=== PATIENT | male | born 1955 | race Caucasian/White ===

== ENCOUNTER → 2018-09-20 09:19 | Outpatient (CLI) | payer OTHER, SELFPAY ==
[2018-09-20 09:41] LABS: Hematocrit 46.7 % (41-53); Hemoglobin 15.8 g/dL (13.5-17.5); Mean Corpuscular HGB Conc 33.8 % (30-36); Mean Corpuscular Hemoglobin 30.7 PG (26-34); Mean Corpuscular Volume 90.9 fL (80-100); Platelet Count 201 X10^3/uL (150-400); Red Blood Cell Count 5.13 X10^6/uL (4.5-5.9); Red Cell Distribution Width 13.4 % (11.6-14.8); White Blood Cell Count 6.3 X10^3/uL (4.5-11.0)
[2018-09-20 09:52] LABS: Blood Urea Nitrogen 18 mg/dL (9-20); Carbon Dioxide 28 mmol/L (22-32); Chloride 104 mmol/L (98-107); Estimated Glomerular Filt Rate > 60.0 mL/min (>60); Glucose 224 mg/dL (80-110); HEMOLYSIS < 15 (0-50); Potassium 5.3 mmol/L (3.4-5.1); Sodium 145 mmol/L (137-145)
[2018-09-20 09:53] LABS: Hemoglobin A1C% w Est Avg Glu 7.2 % (4.0-6.0)
== END ==
PROVIDERS: PCP Family Medicine; Visit Provider Orthopaedic Surgery Orthopaedic Surgery of the Spine
DX: R73.9 Hyperglycemia, unspecified (principal); Z01.818 Encounter for other preprocedural examination
CPT/HCPCS: 36415; 80048; 83036; 85027

== ENCOUNTER 2018-09-27 06:09 | Inpatient (IN) | payer OTHER, SELFPAY ==
[2018-09-21 14:31] VITALS: BMI 36.9
[2018-09-27] VITALS (23 sets, daily range): BP systolic 101–141; BP diastolic 63–86; PULSE 68–112; RESP 11–19; TEMP 35.7–37; O2SAT 93–99; BMI 36.9
--- NOTE | 2018-09-27 | DI.RAD.S_ITS ---
PROCEDURE: XR LUMBAR SPINE 2-3V INDICATIONS: L3-4, L4-5 TLIF TECHNIQUE: 2 views of the lumbar spine were acquired. COMPARISON: None. FINDINGS: Spot fluoroscopic images demonstrating posterior spinal fixation from L3-L4 and L4-L5 with paraspinal alex and pedicle screws, and interbody cage grafts. There is expected intraoperative alignment Dictated by: Harley Phillips M.D. on 09/27/2018 at 13:28 Approved by: Harley Phillips M.D. on 09/27/2018 at 13:29
[2018-09-27] MEDS: LACTATED RINGERS 1,000 ML 42 ML IV ×3 (07:25→11:48)
--- NOTE | 2018-09-27 07:48 | PM.PREOP ---
Pre-operative Note Interval Note Pre-op Check: Yes History & Physical Reviewed by Physician, Yes Exam Performed and Yes History & Physical exam performed today by Physician Changes: No
[2018-09-27] MEDS: CEFAZOLIN 2 GM/100 ML FROZ.PIGGY IV ×3 (07:57→23:32)
[2018-09-27] MEDS: BUPIVACAINE LIPOSOME 266 MG/20 ML VIAL INJ (08:45)
[2018-09-27] MEDS: BUPIVACAINE 0.25% W/ EPI VIAL 50 ML INJ (08:46)
--- NOTE | 2018-09-27 08:55 | SUR.OPER ---
Prone on spine table, head in foam head support, padded chest and pelvic supports, gel pad at knees, lower legs supported by pillows; nipples, genitalia and toes free of pressure, arms secured on foam padded arm boards at <90 degrees abduction. Tape over blanket at thigh secured to table.
--- NOTE | 2018-09-27 11:00 | PC.NURSE ---
Day shift: Not on AC unit at this time.
[2018-09-27] MEDS: ACETAMINOPHEN 1,000 MG/100 ML VIAL IV (11:25)
--- NOTE | 2018-09-27 12:31 | P.OP_ITS ---
Operative Date/Time/Diagnoses Date of procedure: 09/27/18 Time of procedure: 08:24 Pre-op diagnosis: 1. Left drop foot due to lumbar radiculopathy 2. Lumbar spinal stenosis L3-4, L4-5 3. Lumbar spondylosis with radiculopathy Post-op diagnosis: same Procedure & Clinicians Procedure: 1. L3-4, L4-5 Postero-lateral and posterior interbody fusion 2. L3-4, L4-5 interbody cage placement. 3. L3-4, L4-5 decompressive laminectomy with bilateral facetecomies 4. L3-4, L4-5 Posterior segmental instrumentation 5. Hennessey of bone marrow from iliac crest 6. Utilization of microsurgical technique and operating microscope Same procedure as scheduled: Yes Indications: Patient has been having chronic back pain and worsening lumbar radiculopathy. Patient had a progressively worsening left-sided drop foot due to the severe stenosis and spondylosis. Patient failed multiple conservative management with worsening pain weakness and numbness in her lower extremity. Patient has been having difficulty performing activity of daily living. After discussing risks benefits of treatment options, patient elected proceed with surgery. Surgeon: Steve Ocampo [employer] [facility] Consultant: Demetria Diaz Click Yes if Unassisted: No Anesthesia Type: General Operative Notes Closure Type: primary Specimen(s): none sent Implants & Drains: Globus revolve screws, Rise cages Applied: catheter Estimated Blood Loss (mL): 100 Blood products transfused: none Procedure in detail: Patient was seen in the preoperative area. Risks and benefits of the surgery was discussed with the patient. Informed consent was obtained from the patient and placed in the chart. Surgical site was marked. Patient was taken to the operative room. General anesthesia was administered. Prophylactic antibiotic was given to the patient less than 30 min before the incision was made. Patient was placed into a prone position on the Kaz table. Patient's back was then prepped and draped in the sterile fashion. Time- out was performed at this time. Using AP and lateral C-arm imaging the interval between L3-4, L4-5 was identified and marked on patient's back. A 2 inch incision 2 in from midline was made on the left side first. The fascia was incised in line with skin incision. Globus MARS retractors was placed inside the incision and docked onto the L4 and L5 lamina. Using microsurgical technique and operating microscope, a L3 and L4 laminectomy and L3-4, L4-5 facetectomy was performed using a Kerrison rongeur. The exiting L3 and L4 nerve roots on the left were under significant pressure from the enlarged facets. After the decompression, the nerve roots were fully decompressed. The disc space at L3-4, L4-5 was identified. And a total diskectomy was performed at L3-4, L4-5 level. The endplates were decorticated using a rasp and shaver. The total diskectomy and decortication was performed at L3-4, L4-5 level in order to to accomplish a L3-4 , L4-5 fusion. The local bone from the laminectomy and facetectomy was saved for local bone grafting. After the total diskectomy and decortication was completed, demineralized bone matrix bone graft material was combined with local bone that was harvested earlier. At this time, a separate skin is incision was made over the iliac crest. A Jamshidi needle was inserted into the iliac crest through a separate skin incision. 5 cc of bone marrow aspiration was obtained through the separate skin incision using a Jamshidi needle from the iliac crest. The bone marrow aspiration was combined with local bone and the via cell bone grafting material. The bone grafting material was placed into the L3-4, L4-5 interbody space along with two cages, one expandable cage at each level. The cages were expanded to their maximum height using the torque limiting screwdriver. At this time a mirror image incision was made on the right side. The fascia was incised in line with the skin incision. Globus MARS retractor was inserted and docked onto the L3-4, L4-5 posterolateral gutter. Using the power drill, posterior-lateral decortication was performed at L3-4, L4-5 level until bleeding cortical bone was identified. The remaining bone grafting material was placed into the L3-4, L4-5 posterior lateral gutter he order to accomplish posterolateral fusion at the L3-4, L4-5 levels. Using the double C-arm technique, pedicle screws were placed into the L3, L4, and L5 pedicles bilaterally. This was done by placing the Jamshidi needle into the pedicles, then placing the guidewires over the Jamshidi needle, and finally placing the cannulated screws over the guidewires bilaterally. After the pedicle screws were placed, 2 titanium rods was locked into the heads of the pedicle screws using locking caps and torque limiting screwdriver. Total 6 pedicles screws were placed. After all the hardware was placed, and confirmed with AP and lateral C-arm imaging, the wound was then irrigated with sterile normal saline and packed with Ray-Bere gauze for 3 min to accomplish hemostasis. After the gauze was removed the deep fascia was closed with #1 Vicryl suture. The subcutaneous layer was closed with 2-0 Vicryl. The skin was closed with skin laura. Patient tolerated the procedure well. There were no complications. Complications: none Condition: stable Disposition: PACU Plan for aftercare: Admit to inpatient hospital
[2018-09-27] MEDS: hydrOXYzine 50 MG/ML INJ IM (12:45)
[2018-09-27] MEDS: LORazepam 2 MG/ML SYRINGE 0.25 MG IV (12:54)
[2018-09-27] MEDS: fentaNYL 100 MCG/2 ML INJ 50 MCG IV ×2 (13:26→13:35)
--- NOTE | 2018-09-27 14:08 | PC.NURSE ---
Day shift: Arrived on unit at approx 1400 from PACU. Dressing is CDI. Spouse in room and very involved with his care. Olivares in place. 2L NC 95%. RT is going to set up CPAP. Will continue to monitor.+
--- NOTE | 2018-09-27 14:21 | SUR.OPER ---
when removing tape during extubation a small skin tear occurred on the patients right cheekbone
[2018-09-27] MEDS: OXYCODONE IR 5 MG TABLET 10 MG PO ×3 (15:52→23:32)
[2018-09-27] MEDS: SODIUM CHLORIDE 0.9% 1,000 ML 100 ML IV (15:56)
--- NOTE | 2018-09-27 16:20 | PT.IIE ---
Current Diagnoses Foot drop, left foot (09/27/18) Other spondylosis with radiculopathy, lumbar region (09/27/18) Spinal stenosis, lumbar region without neurogenic claudication (09/27/18) Surgery Performed Operation Date: 09/27/18 07:45 Actual Procedures p L3-4, L4-5 TLIF w/Posterior Instru. - Steve Ocampo MD Surgical History (Last Updated 09/21/18 @ 14:57 by Kim Colón, RN) Hx of heart artery stent (Acute ~2004) Hx of laminectomy (Acute) Hx of tonsillectomy (Acute) Medical History (Last Updated 09/21/18 @ 15:10 by Kim Colón RN) Anxiety (Acute) Bronchitis (Acute) CAD (coronary artery disease) (Acute) Coccyx disorder (Acute) Diabetes (Acute) Eczema (Acute) HTN (hypertension) (Acute) Hyperlipidemia (Acute) Melanoma (Acute) Muscle weakness (Acute) Numbness and tingling (Acute) GEOVANNY on CPAP (Acute) Panic attacks (Acute) Physical Therapy Inpatient Evaluation/Re-Eval M1 PT/OT-IP Prior Functional Status Start: 09/27/18 16:47 Freq: NEEDED Status: Active Protocol: Document 09/27/18 16:20 AB (Rec: 09/27/18 17:11 AB [id number]) Medical Review Prior Functional Status Medical History Reviewed Yes Communication able to make needs known Mobility and Gait stated that he is independent with all mobilities and ambulation without AD but has gotten weakness on BLE passed few months and unable to ambulate much Social History Household Members spouse Living Arrangements House Number of Floors (Floors) 3 or More Floors Number of Stairs To Enter/Railing? no steps to enter and has an elevator to get to other floor Home Environment Standard Height Toilet Walk in Shower Tub/Shower Home Equipment Front Wheel Walker Raised Toilet Seat w/Armrests Hand Held Shower Grab Bars In Shower Employment Status Retired Additional Social History Comment pt has a walk in shower but is broken; has a tub shower without grab bars/chair M2 PT-IP Current Condition Start: 09/27/18 16:47 Freq: NEEDED Status: Active Protocol: Document 09/27/18 16:20 AB (Rec: 09/27/18 17:11 AB [id number]) Physical Therapy Current Condition Current Condition Evaluation Date 09/27/18 Treatment Diagnosis L3-4, L4-5 posterior fusion and lami; difficulty in walking Onset Date 09/27/18 Precautions Lumbar Precautions Log Roll No Twisting Limit Bending Lifting Restriction of 10 lbs Gait Belt above Incisional Area M3 PT-IP Subjective Start: 09/27/18 16:47 Freq: NEEDED Status: Active Protocol: Document 09/27/18 16:20 AB (Rec: 09/27/18 17:11 AB [id number]) Subjective Physical Therapy Visit Type Type Initial Evaluation Visit Start Time 16:20 Visit Stop Time 16:47 Total Visit Minutes 27 Number of SPREAD CUTTER Visits 0 Physical Therapy Visit Comments Patient Comments I have a lot of pain; pt getting agitated/irritated when asked to do log roll, stated Why can't you just pull me and get me up. Patient Goals to go home Therapy Pain Assessment Pain When Pain Assessed At Rest Pain Present Pain Present Pain Reported Location Back Intensity 9 Scale Used Numeric (1 - 10) Pain Management Techniques Re-positioning Timing of Activity with Medications M4 PT-IP Mobility and Gait Start: 09/27/18 16:47 Freq: NEEDED Status: Active Protocol: Document 09/27/18 16:20 AB (Rec: 09/27/18 17:11 AB [id number]) PT-Bed Mobility Assessment Rolling Type of Rolling Log Rolling Level of Assist Maximal Assistance 1 Person Assistance Supine to Sit Supine to Sit Maximum Assistance 1 Person Assistance 2 Person Assistance Scooting Scooting to Edge of Bed Maximum Assistance PT-Transfer Assessment Sit to and From Stand Sit to and from Stand Maximum Assistance 1 Person Assistance Use of Upper Extremities Equipment Transfer Assistive Device Gait Belt Front Wheeled Walker Orthotic/Prosthetic Devices or Brace: No Transfers Transfer Destination Chair Transfer Technique Stand Step Pivot Transfer Ability Level of Assist Minimal Assistance 1 Person Assistance Use of Upper Extremities Comments Mobility Comments pt required max A for sit to stand but able to take side steps to transfer to chair using FWW min A. pt refused to ambulate and just want to sit on the chair. informed nurse regarding pt's c/o pain. Gait Assessment Comments Gait Comments refused to do ambulation but able to take steps during transfers using FWW min A and cues. PT-Balance Assessment Sitting Balance and Reactions Static Sitting Balance Ability Good Dynamic Sitting Balance Ability Good Standing Balance and Reactions Static Standing Balance Ability Fair Dynamic Standing Balance Ability Fair Device Used FWW M5 PT-IP Objective Assessments Start: 09/27/18 16:47 Freq: NEEDED Status: Active Protocol: Document 09/27/18 16:20 AB (Rec: 09/27/18 17:11 AB [id number]) Orientation Orientation/Cognition Level of Alertness Alert Orientation Name Age Birthday Month Date Year Day of Week Place Situation Safety Awareness Decreased Safety Awareness Memory Description Short Term Impaired Gross Range of Motion Lower Extremity ROM Assessment Within Functional Limits Strength Lower Extremity Strength Assessment Bilaterally Impaired Hip 4-/5 Knee 4-/5 Sensation Assessment Sensation Gross Sensation WNL Muscle Tone Muscle Tone WNL Yes M6 PT-IP Treatment Start: 09/27/18 16:47 Freq: NEEDED Status: Active Protocol: Document 09/27/18 16:20 AB (Rec: 09/27/18 17:11 AB [id number]) Physical Therapy Treatment Education Education Provided Precautions Weight Bearing Status Post-Op Packet Safety M7 PT-IP Assessment and Plan Start: 09/27/18 16:47 Freq: NEEDED Status: Active Protocol: Document 09/27/18 16:20 AB (Rec: 09/27/18 17:11 AB [id number]) PT Summary Assessment and Plan Potential Rehabilitation Potential Fair Status of Condition at Evaluation Evolving Summary Impairments Pain ROM Strength Balance Coordination Sensation Tone Cognition Bed Mobility Transfers Gait Activity Tolerance Assessment Summary pt requiring max A x 1-2 for bed mobility and max A for sit to stand. c/o increase pain affecting mobility. d/c plan depending on progress and needs further assessment. spouse will assist pt at home and caregiver training will be conducted when appropriate. Goals Bed Mobility Goal Standby Assistance Transfer Goal Standby Assistance Front Wheeled Walker Gait Goal Standby Assistance Front Wheel Walker Gait Distance 150 Days to Meet Goals 3 Frequency of Treatment Frequency Of Treatment Twice a Day Treatment Plan Physical Therapy Treatment Plan Bed Mobility Training Transfer Training Gait Training Therapeutic Exercise Balance Retraining Post Op Education Discharge Planning Hot or Cold Pack Neuromuscular Re-ed Coordination Retraining Manual Therapy Other Recommendations and Next Treatment ambulation Focus Recommendations To Nursing Amount of Assist Needed 1 Person Assist Discharge Recommendations PT Discharge Recommendations Home with 24/7 Assist Home Health SNF Rehab Other Discharge Recommendations SNF vs home with 24/7 and homehealth PT
[2018-09-27] MEDS: HYDROMORPHONE 1 MG INJ 0.5 MG IV ×2 (18:22→20:47)
[2018-09-27] MEDS: COLESEVELAM 625 MG TABLET 1875 MG PO (20:40)
[2018-09-27] MEDS: ASPIRIN EC 81 MG TABLET PO (20:40)
[2018-09-27] MEDS: ATORVASTATIN 20 MG TABLET 40 MG PO (20:40)
[2018-09-27] MEDS: DOCUSATE 100 MG CAPSULE PO (20:41)
[2018-09-27] MEDS: INSULIN GLARGINE 100 UNIT/ML 3ML PEN 70 UNIT SUBCUT (20:51)
[2018-09-27] MEDS: INSULIN ASPART 100 UNIT/ML INSULN PEN SUBCUT (20:51)
[2018-09-27] MEDS: RAMIPRIL 5 MG CAPSULE PO (21:06)
--- NOTE | 2018-09-27 23:46 | PC.NURSE ---
Addendum entered by Alise Fernández R.N. 09/28/18 05:44: Up to chair with 2 assist and walker; slightly unsteady upon first standing up. Reminded of log rolling and restrictions on bending, twisting and lifting; verbalizes understanding. Ice applied to back. States pain is 7/10 so medicated with Oxycodone + Vistaril and discussed intervals on both pain medications. States his back and transfer ability seems much improved from yesterday. Original Note: Addendum entered by Alise Fernández R.N. 09/28/18 02:41: States pain is still 8/10 with movement and 5/10 at rest; medicated with Oxycodone IR. Original Note: Addendum entered by Alise Fernández R.N. 09/28/18 01:14: Patient medicated with Vistaril for continued pain and instructed to call if medication insufficient to control pain. Original Note: Addendum entered by Alise Fernández R.N. 09/28/18 00:51: Able to turn himself back onto back. States pain is better but still at 8/10. Requests SCD's be removed as they're keeping me awake; reminded to ankle wave when awake and patient verbalizes understanding. Original Note: Patient is alert and oriented. Breath sounds CTA with RA sat of 94%; using CPAP for night and is on continuous pulse oximeter. HRR. Denies nausea. BT present and is passing flatus. Dressing to back is CDI. Complains of 9/10 back pain so medicated with Oxycodone IR, ice applied and repositioned onto right side via log roll method. Foot SCD's applied during bedside shift report. Denies any tingling/numbness and CMS is intact. Indwelling catheter is patent with pale yellow urine in bag. Taking in good po fluids. Fall risk score is high (reports 1 fall in past 3 months) so bed alarm activated.
[2018-09-28] VITALS (7 sets, daily range): BP systolic 116–160; BP diastolic 60–90; PULSE 101–115; RESP 16–20; TEMP 36.6–37.3; O2SAT 90–98
[2018-09-28] MEDS: hydrOXYzine pamoate 25 MG CAPSULE PO ×6 (01:07→22:38)
[2018-09-28] MEDS: OXYCODONE IR 5 MG TABLET 10 MG PO ×7 (02:39→20:18)
[2018-09-28 05:24] LABS: Hematocrit 39.9 % (41-53); Hemoglobin 13.2 g/dL (13.5-17.5)
[2018-09-28] MEDS: ISOSORBIDE MONONITRATE ER 30 MG TABLET PO (05:35)
--- NOTE | 2018-09-28 07:41 | PM.PNPO.1 ---
Subjective Date Patient Seen: 09/28/18 Interval history: Patient seen s/p L3-4, L4-[address] Ocampo on 09/27/18. Patient is POD #1. Patient's pain is well controlled and he states that he feels like his foot drop on the left side has improved. He has been up some but not worked with PT. Denies CP, SOB, or numbness/tingling. Exam Vital Signs (past 8 hours): - 09/28/18 02:24 09/28/18 03:23 Temperature 97.8 F Pulse Rate 109 H Respiratory Rate 19 Blood Pressure 116/60 Pulse Oximetry 94 98 Fraction of Inspired Oxygen 21 Oxygen Delivery Method Room Air,CPAP Oxygen Flow Rate 0 Narrative Exam Narrative: WDWN NAD A&Ox3. Dressing on lumbar spine CDI. No focal deficits noted, calves are soft and compressible. Objective Labs Result Diagrams: 09/28/18 05:10 Labs: Laboratory Results - last 24 hr 09/28/18 05:10 Hgb 13.2 L Hct 39.9 L Assessment & Plan Post-op Postoperative Procedures Operation Date: 09/27/18 07:45 Actual Procedures Side Surgeon p L3-4, L4-5 TLIF w/Posterior Instru. Steve Ocampo MD 1. POD #1 s/p above procedure--PT, pain control, likely d/c tomorrow. D/c catheter when more mobile.
[2018-09-28] MEDS: ACETAMINOPHEN 325 MG TABLET 650 MG PO ×2 (08:41→14:05)
[2018-09-28] MEDS: DOCUSATE 100 MG CAPSULE PO ×2 (08:42→20:16)
[2018-09-28] MEDS: METFORMIN XR 500 MG TABLET 1000 MG PO ×2 (08:42→17:08)
[2018-09-28] MEDS: METOPROLOL ER 50 MG TABLET PO (08:42)
[2018-09-28] MEDS: COLESEVELAM 625 MG TABLET 1875 MG PO ×2 (08:42→20:16)
[2018-09-28] MEDS: ESCITALOPRAM 10 MG TABLET PO (08:42)
[2018-09-28] MEDS: MULTIVITAMIN 1 TABLET 1 TAB PO (08:43)
[2018-09-28] MEDS: INSULIN ASPART 100 UNIT/ML INSULN PEN SUBCUT ×2 (08:46→12:18)
--- NOTE | 2018-09-28 09:35 | PT.IPTN ---
Current Diagnoses Foot drop, left foot (09/27/18) Other spondylosis with radiculopathy, lumbar region (09/27/18) Spinal stenosis, lumbar region without neurogenic claudication (09/27/18) Surgery Performed Operation Date: 09/27/18 07:45 Actual Procedures p L3-4, L4-5 TLIF w/Posterior Instru. - Steve Ocampo MD Physical Therapy Treatment Note M2 PT-IP Current Condition Start: 09/27/18 16:47 Freq: NEEDED Status: Active Protocol: Document 09/27/18 16:20 AB (Rec: 09/27/18 17:11 AB [id number]) Physical Therapy Current Condition Current Condition Evaluation Date 09/27/18 Treatment Diagnosis L3-4, L4-5 posterior fusion and lami; difficulty in walking Onset Date 09/27/18 Precautions Lumbar Precautions Log Roll No Twisting Limit Bending Lifting Restriction of 10 lbs Gait Belt above Incisional Area M3 PT-IP Subjective Start: 09/27/18 16:47 Freq: NEEDED Status: Active Protocol: Document 09/28/18 09:35 GGD (Rec: 09/28/18 12:38 GGD [email or web address]) Subjective Physical Therapy Visit Type Type Treatment Note Visit Start Time 09:10 Visit Stop Time 09:35 Total Visit Minutes 25 Number of FRONT OFFICE AGENT Visits 1 Physical Therapy Visit Comments Patient Comments Pt states he been up to chair today. Therapy Pain Assessment Pain When Pain Assessed At Rest Pain Present Pain Present Pain Reported M4 PT-IP Mobility and Gait Start: 09/27/18 16:47 Freq: NEEDED Status: Active Protocol: Document 09/28/18 09:35 GGD (Rec: 09/28/18 12:38 GGD [email or web address]) PT-Bed Mobility Assessment Rolling Level of Assist Contact Guard Assistance 1 Person Assistance Supine to Sit Supine to Sit Moderate Assistance 1 Person Assistance Sit to Supine Sit to Supine Contact Guard Assistance Scooting Scooting to Edge of Bed Contact Guard Assistance PT-Transfer Assessment Sit to and From Stand Sit to and from Stand Contact Guard Assistance Use of Upper Extremities Equipment Transfer Assistive Device Gait Belt Front Wheeled Walker Orthotic/Prosthetic Devices or Brace: No Transfers Transfer Destination Bed Transfer Ability Level of Assist Contact Guard Assistance Use of Upper Extremities Gait Assessment Gait Gait Assistance Required: Contact Guard Assist Distance (Feet) 150 Able to Maintain Weight Bearing Status Yes During Gait Assistive Devices Assistive Device Gait Belt Front Wheeled Walker Orthotic/Prosthetic Devices or Brace: No Gait Deviations General Gait Pattern Decreased Stride Length Decreased Feet Clearance Flexed Trunk Factors Limiting Gait Function Factors Limiting Gait Function Decreased Activity Tolerance Decreased Strength Pain M5 PT-IP Objective Assessments Start: 09/27/18 16:47 Freq: NEEDED Status: Active Protocol: Document 09/27/18 16:20 AB (Rec: 09/27/18 17:11 AB [id number]) Orientation Orientation/Cognition Level of Alertness Alert Orientation Name Age Birthday Month Date Year Day of Week Place Situation Safety Awareness Decreased Safety Awareness Memory Description Short Term Impaired Gross Range of Motion Lower Extremity ROM Assessment Within Functional Limits Strength Lower Extremity Strength Assessment Bilaterally Impaired Hip 4-/5 Knee 4-/5 Sensation Assessment Sensation Gross Sensation WNL Muscle Tone Muscle Tone WNL Yes M6 PT-IP Treatment Start: 09/27/18 16:47 Freq: NEEDED Status: Active Protocol: Document 09/28/18 09:35 GGD (Rec: 09/28/18 12:38 GGD [email or web address]) Physical Therapy Treatment Education Education Provided Precautions M7 PT-IP Assessment and Plan Start: 09/27/18 16:47 Freq: NEEDED Status: Active Protocol: Document 09/28/18 09:35 GGD (Rec: 09/28/18 12:38 GGD [email or web address]) PT Summary Assessment and Plan Summary Assessment Summary Pt improving with bed mobility and gait tolerance. He did have increase in pain with bed mobility. He need less assist , but did need mod A for supine to sit. He need cues for log roll technique. Pt should D/C home when medically stable. Frequency of Treatment Frequency Of Treatment Twice a Day Treatment Plan Physical Therapy Treatment Plan Bed Mobility Training Transfer Training Gait Training Therapeutic Exercise Balance Retraining Post Op Education Discharge Planning Hot or Cold Pack Neuromuscular Re-ed Coordination Retraining Manual Therapy Other Recommendations and Next Treatment ambulation Focus Recommendations To Nursing Amount of Assist Needed 1 Person Assist Discharge Recommendations PT Discharge Recommendations Home with Assistance
[2018-09-28] MEDS: SODIUM CHLORIDE 0.9% FLUSH 10 ML IV ×2 (10:00→20:15)
--- NOTE | 2018-09-28 13:03 | OT.IP.TRT ---
Current Diagnoses Foot drop, left foot (09/27/18) Other spondylosis with radiculopathy, lumbar region (09/27/18) Spinal stenosis, lumbar region without neurogenic claudication (09/27/18) Surgery Performed Operation Date: 09/27/18 07:45 Actual Procedures p L3-4, L4-5 TLIF w/Posterior Instru. - Steve Ocampo MD Occupational Therapy Treatment Note M3 OT- IP Subjective and Pain Start: 09/28/18 13:01 Freq: Status: Active Protocol: Document 09/28/18 13:01 [facility] (Rec: 09/28/18 13:03 [facility] [id number]) OT- Subjective Occupational Therapy Visit Type Type Treatment Note Notes Pt not wanting to been see for OT at this time due to just receiving pain medications and prefer to be seen tomorrow for OT needs. Therefore to do OT eval tomorrow.
[2018-09-28] MEDS: HYDROMORPHONE 0.5 MG INJ IV ×2 (15:02→18:46)
--- NOTE | 2018-09-28 16:00 | PT.IPTN ---
Current Diagnoses Foot drop, left foot (09/27/18) Other spondylosis with radiculopathy, lumbar region (09/27/18) Spinal stenosis, lumbar region without neurogenic claudication (09/27/18) Surgery Performed Operation Date: 09/27/18 07:45 Actual Procedures p L3-4, L4-5 TLIF w/Posterior Instru. - Steve Ocampo MD Physical Therapy Treatment Note M2 PT-IP Current Condition Start: 09/27/18 16:47 Freq: NEEDED Status: Active Protocol: Document 09/27/18 16:20 AB (Rec: 09/27/18 17:11 AB [id number]) Physical Therapy Current Condition Current Condition Evaluation Date 09/27/18 Treatment Diagnosis L3-4, L4-5 posterior fusion and lami; difficulty in walking Onset Date 09/27/18 Precautions Lumbar Precautions Log Roll No Twisting Limit Bending Lifting Restriction of 10 lbs Gait Belt above Incisional Area M3 PT-IP Subjective Start: 09/27/18 16:47 Freq: NEEDED Status: Active Protocol: Document 09/28/18 14:45 GGD (Rec: 09/28/18 15:59 GGD [id number]) Subjective Physical Therapy Visit Type Type Treatment Note Visit Start Time 14:15 Visit Stop Time 14:45 Total Visit Minutes 30 Number of MEDICAL AUDITOR Visits 2 Physical Therapy Visit Comments Patient Comments Pt states he is in a lot of pain, but want's to try and walk. Therapy Pain Assessment Pain When Pain Assessed At Rest Pain Present Pain Present Pain Reported Location Back Intensity 8 Scale Used Numeric (1 - 10) Pain Management Techniques Re-positioning Timing of Activity with Medications M4 PT-IP Mobility and Gait Start: 09/27/18 16:47 Freq: NEEDED Status: Active Protocol: Document 09/28/18 14:45 GGD (Rec: 09/28/18 15:59 GGD [id number]) PT-Bed Mobility Assessment Rolling Type of Rolling Log Rolling Level of Assist Minimal Assistance 1 Person Assistance Supine to Sit Supine to Sit Maximum Assistance 1 Person Assistance Bedrails Sit to Supine Sit to Supine Minimal Assistance 1 Person Assistance Bedrails Scooting Scooting to Edge of Bed Contact Guard Assistance PT-Transfer Assessment Sit to and From Stand Sit to and from Stand Contact Guard Assistance Use of Upper Extremities Equipment Transfer Assistive Device Gait Belt Front Wheeled Walker Orthotic/Prosthetic Devices or Brace: No Transfers Transfer Destination Bed Transfer Ability Level of Assist Contact Guard Assistance Use of Upper Extremities Gait Assessment Gait Gait Assistance Required: Contact Guard Assist Distance (Feet) 50 Able to Maintain Weight Bearing Status Yes During Gait Assistive Devices Assistive Device Gait Belt Front Wheeled Walker Orthotic/Prosthetic Devices or Brace: No Gait Deviations General Gait Pattern Decreased Stride Length Decreased Feet Clearance Flexed Trunk Factors Limiting Gait Function Factors Limiting Gait Function Decreased Activity Tolerance Decreased Strength Pain M5 PT-IP Objective Assessments Start: 09/27/18 16:47 Freq: NEEDED Status: Active Protocol: Document 09/27/18 16:20 AB (Rec: 09/27/18 17:11 AB [id number]) Orientation Orientation/Cognition Level of Alertness Alert Orientation Name Age Birthday Month Date Year Day of Week Place Situation Safety Awareness Decreased Safety Awareness Memory Description Short Term Impaired Gross Range of Motion Lower Extremity ROM Assessment Within Functional Limits Strength Lower Extremity Strength Assessment Bilaterally Impaired Hip 4-/5 Knee 4-/5 Sensation Assessment Sensation Gross Sensation WNL Muscle Tone Muscle Tone WNL Yes M6 PT-IP Treatment Start: 09/27/18 16:47 Freq: NEEDED Status: Active Protocol: Document 09/28/18 14:45 GGD (Rec: 09/28/18 15:59 GGD [id number]) Physical Therapy Treatment Education Education Provided Precautions M7 PT-IP Assessment and Plan Start: 09/27/18 16:47 Freq: NEEDED Status: Active Protocol: Document 09/28/18 14:45 GGD (Rec: 09/28/18 15:59 GGD [id number]) PT Summary Assessment and Plan Summary Assessment Summary Pt had increase in C/O pain and needed increase in assistance. He had decrease tolerance to gait, due to pain . Frequency of Treatment Frequency Of Treatment Twice a Day Treatment Plan Physical Therapy Treatment Plan Bed Mobility Training Transfer Training Gait Training Therapeutic Exercise Balance Retraining Post Op Education Discharge Planning Hot or Cold Pack Neuromuscular Re-ed Coordination Retraining Manual Therapy Other Recommendations and Next Treatment ambulation Focus Recommendations To Nursing Amount of Assist Needed 1 Person Assist Discharge Recommendations PT Discharge Recommendations Home with Assistance
--- NOTE | 2018-09-28 16:30 | CM.IDA ---
Discharge Planning/Care Management CM Discharge Assessment Start: 09/28/18 16:24 Freq: Status: Active Protocol: Document 09/28/18 16:25 ANGEL (Rec: 09/28/18 16:30 ANGEL [id number]) Discharge Planning Assessment Assigned [address] [employer] LARA Regalado DPOA/Assigned Designee Name Asha Sánchez, spouse Contact Information [phone] Advance Directives? No Prior Living Arrangements House Household Members spouse Type of transporation used prior to Drives own vehicle admit Independent with ADL's Yes Is patient alert and oriented? Yes Comment Spouse getting addtl. DME from [employer] today. Barriers to Discharge No Comment Met w/pt today, explained SW role. Pt states he is overwhelmed today by the amount of pain he has but he is hopeful he can return home w/spouse, hopefully Monday, possibly Monday if he hasn't made significant improvement. Discussed SNF briefly, pt states he has [employer] and an alternative coverage for SNF ( ?) This TAP OUT OPERATOR explained pt will likely progress to go home ( according to PT notes) and we are heading into a 4 day Holiday weekend that will limit options, pt understands. Pt appreciative of the visit. No barriers identified to DC home w/family at this time. Pt only POd#1 today and may benefit from an addtl day or two w/therapy team before DC home. Discharge Plan Home Transportation Arrangement Family Referrals Initiated None needed Whiteboard Updated in Patient Room with Yes name and ext. # of [address] Service Review Status In Process
[2018-09-28] MEDS: diazePAM 5 MG TABLET PO (17:52)
[2018-09-28] MEDS: ATORVASTATIN 20 MG TABLET 40 MG PO (20:15)
[2018-09-28] MEDS: INSULIN GLARGINE 100 UNIT/ML 3ML PEN 70 UNIT SUBCUT (20:16)
[2018-09-28] MEDS: ASPIRIN EC 81 MG TABLET PO (20:17)
[2018-09-28] MEDS: RAMIPRIL 5 MG CAPSULE PO (20:17)
[2018-09-28] MEDS: SENNOSIDES 8.6 MG TABLET 17.2 MG PO (20:18)
--- NOTE | 2018-09-28 20:37 | PC.NURSE ---
PM shift Pt has continued with pain management issues. Oxycodone, Vistaril, Diazepam and break through IV Dilaudid to keep pain less than a 4. Discussed POC and pain management goals at length. Pt is aware for plan to d/c in am. Dressing to back CDI. CPAP at NOC
[2018-09-29] MEDS: OXYCODONE IR 5 MG TABLET 10 MG PO ×2 (00:01→05:08)
[2018-09-29] MEDS: diazePAM 5 MG TABLET PO (00:02)
[2018-09-29] MEDS: HYDROMORPHONE 0.5 MG INJ IV ×2 (02:25→06:03)
[2018-09-29] MEDS: hydrOXYzine pamoate 25 MG CAPSULE PO ×3 (02:25→11:34)
[2018-09-29 03:00] VITALS: BP 150/75; PULSE 111; RESP 16; TEMP 37.5; O2SAT 92
[2018-09-29] MEDS: ACETAMINOPHEN 325 MG TABLET 650 MG PO ×2 (06:03→12:14)
[2018-09-29] MEDS: ISOSORBIDE MONONITRATE ER 30 MG TABLET PO (06:04)
[2018-09-29 07:30] VITALS: BP 114/68; PULSE 108; RESP 18; O2SAT 91
--- NOTE | 2018-09-29 08:20 | P.DS_ITS ---
History of Present Illness Date Patient Seen: 09/29/18 Time Patient Seen: 09:00 Chief complaint: [id number] Narrative: Patient seen bedside s/p L3-4, L4-5 TLIF, cage, single posterior instrumented fusion on 09/27/18 at [facility] by Dr. Ocampo. He is doing well , but pain has increased. He did walk some with physical therapy today. His mcclelland is still in place. He denies CP, SOB, and calf pain. Discharge Providers Date of admission: 09/27/18 06:09 Primary care physician: Jean Daniel MD Consults: 09/21/18 15:13 Consult to Anesthesiology Routine Comment: Consulting Provider: Anesthesiologist Reason for consultation: Surgeon requested re: Cardiac 09/27/18 07:11 Consult to Respiratory Therapy Evaluate & Treat Comment: Physician Instructions: Evaluate and treat 09/27/18 14:04 Consult to Occupational Therapy Evaluate & Treat Comment: Physician Instructions: Evaluate and treat Consult to Physical Therapy Evaluate & Treat Comment: Physician Instructions: Evaluate and Treat Discharge provider: Stephanie Sawyer PA-C Discharge Date: 09/29/18 Summary Discharge Diagnosis: 1. Spinal stenosis of lumbar region with neurogenic claudication 2. Left foot drop 3. OA of spine with radiculopathy Hospital Course: Patient was admitted to the hospital s/p L3-4, L4-5 TLIF, cage , single posterior instrumented fusion on 09/27/18 at [facility] by Dr. Ocampo. Patient tolerated the procedure well with no major complications. He is transferred to the acute care floor was placed on the standard lumbar spine postoperative protocol. He seen by Physical therapy who recommended that he be discharged home. In 09/29/2018 he had a slight increase in his pain is pain medications were changed. He was stable ready for discharge on 09/29/2018 Status at Discharge Cognitive/behavioral status at discharge: Alert and oriented x4 Functional status at discharge: uses cane/walker Time Spent with Patient Less than 30 minutes Exam Vital Signs (past 8 hours): - 09/29/18 03:00 Temperature 99.5 F Pulse Rate 111 H Respiratory Rate 16 Blood Pressure 150/75 H Pulse Oximetry 92 Fraction of Inspired Oxygen 21 Oxygen Delivery Method Room Air Oxygen Flow Rate 0 Narrative Exam Narrative: Well-developed well-nourished no acute distress. Alert oriented x3. Dressing on the lumbar spine is clean dry and intact. Calves are soft and compressible and no signs of focal deficits noted. Ruby sign negative Objective Labs Result Diagrams: 09/28/18 05:10 Discharge Plan Discharge Plan Patient Disposition: Home Discharge comment: d/c if pain is controlled and does well with PT. He also must urinate prior to d/c. If not, may cancel discharge order for today. Discharge Med Rec/Prescriptions Prescriptions: New hydromorphone 2 mg Tablet 2 mg PO Q4H PRN (Reason: Pain, Moderate (4-6)) Qty: 40 RF: 0 docusate sodium 100 mg Capsule 100 mg PO BID Qty: 0 RF: 0 hydroxyzine pamoate 25 mg Capsule 25 mg PO Q4HR PRN (Reason: Nausea And Vomiting) 50 Days RF: 0 Continue metoprolol succinate [Toprol XL] 50 MG tablet extended release 24 hr 50 mg PO QAM Qty: 0 RF: 0 escitalopram oxalate [Lexapro] 10 MG tablet 10 mg PO QAM Qty: 0 RF: 0 colesevelam [WelChol] 625 MG tablet 3 tab PO BID Qty: 0 RF: 0 ramipril [Altace] 5 MG capsule 5 mg PO BEDTIME Qty: 0 RF: 0 empagliflozin [Jardiance] 25 MG tablet 1 tab PO QAM Qty: 0 RF: 0 atorvastatin [Lipitor] 40 MG tablet 40 mg PO BEDTIME Qty: 0 RF: 0 isosorbide mononitrate 30 MG tablet extended release 24 hr 30 mg PO QAM Qty: 0 RF: 0 insulin glargine [Lantus Solostar U-100 Insulin] 100 UNIT/1 ML insulin pen 70 units subcut BEDTIME Qty: 0 RF: 0 multivitamin [Multiple Vitamins] 1 EACH tablet 1 tab PO DAILY Qty: 0 RF: 0 aspirin 81 MG tablet,delayed release (DR/EC) 81 mg PO BEDTIME Qty: 0 RF: 0 coenzyme Q10 [Co Q-10] 100 MG capsule 1 tab PO DAILY Qty: 0 RF: 0 metformin [Fortamet] 1,000 MG tablet extended release 24hr 1,000 mg PO BID Qty: 0 RF: 0 Discontinued clopidogrel [Plavix] 75 MG tablet 75 mg PO DAILY Qty: 0 RF: 0 ibuprofen [Advil] 200 mg Tablet 2 tab PO TID-QID RF: 0 Follow up/Referrals: Steve Ocampo MD [Physician] - (Follow up in the office at your previously scheduled post-operative appointment in 2 weeks' time.) Provider Discharge Instructions Diet: Diet as Tolerated Activity: Weightbearing as tolerated, use walker until more stable on feet. Limit twisting/bending/lifting greater than 5 lbs. Cold/Heat Therapy: Apply ice 20 minutes at a time at least hourly while awake. Skin/Wound/Dressing Care Report to your healthcare provider any signs of infection, such as:: chills, fever, night sweats, increased pain, unusual drainage and unusual redness Dressing: Keep dressing clean, dry, and intact. May shower with it in place but no soaking. Visit Report/Discharge Packet Instructions: DI for Transforaminal Lumbar Interbody Fusion Discharge Data Primary Care Provider: Jean Daniel Attending Provider: Steve Ocampo Admit Date/Time: 09/27/18 06:09
[2018-09-29 08:30] VITALS: O2SAT 94
[2018-09-29] MEDS: METFORMIN XR 500 MG TABLET 1000 MG PO (08:34)
[2018-09-29] MEDS: COLESEVELAM 625 MG TABLET 1875 MG PO (08:35)
[2018-09-29] MEDS: DOCUSATE 100 MG CAPSULE PO (08:36)
[2018-09-29] MEDS: METOPROLOL ER 50 MG TABLET PO (08:36)
[2018-09-29] MEDS: ESCITALOPRAM 10 MG TABLET PO (08:36)
[2018-09-29] MEDS: SODIUM CHLORIDE 0.9% FLUSH 10 ML IV (08:37)
[2018-09-29] MEDS: MULTIVITAMIN 1 TABLET 1 TAB PO (08:37)
[2018-09-29] MEDS: HYDROMORPHONE 2 MG TABLET PO ×2 (08:40→11:33)
[2018-09-29] MEDS: MAGNESIUM HYDROXIDE 30 ML UDC PO (08:41)
--- NOTE | 2018-09-29 09:25 | PT.IPTN ---
Current Diagnoses Foot drop, left foot (09/27/18) Other spondylosis with radiculopathy, lumbar region (09/27/18) Spinal stenosis, lumbar region without neurogenic claudication (09/27/18) Surgery Performed Operation Date: 09/27/18 07:45 Actual Procedures p L3-4, L4-5 TLIF w/Posterior Instru. - Steve Ocampo MD Physical Therapy Treatment Note M2 PT-IP Current Condition Start: 09/27/18 16:47 Freq: NEEDED Status: Active Protocol: Document 09/27/18 16:20 AB (Rec: 09/27/18 17:11 AB [id number]) Physical Therapy Current Condition Current Condition Evaluation Date 09/27/18 Treatment Diagnosis L3-4, L4-5 posterior fusion and lami; difficulty in walking Onset Date 09/27/18 Precautions Lumbar Precautions Log Roll No Twisting Limit Bending Lifting Restriction of 10 lbs Gait Belt above Incisional Area M3 PT-IP Subjective Start: 09/27/18 16:47 Freq: NEEDED Status: Active Protocol: Document 09/29/18 09:25 GGD (Rec: 09/29/18 12:28 GGD [id number]) Subjective Physical Therapy Visit Type Type Treatment Note Visit Start Time 09:00 Visit Stop Time 09:25 Total Visit Minutes 25 Number of LEGAL ANALYST Visits 3 Physical Therapy Visit Comments Patient Comments Pt states he been up today. Therapy Pain Assessment Pain When Pain Assessed At Rest Pain Present Pain Present Pain Reported M4 PT-IP Mobility and Gait Start: 09/27/18 16:47 Freq: NEEDED Status: Active Protocol: Document 09/29/18 09:25 GGD (Rec: 09/29/18 12:28 GGD [id number]) PT-Bed Mobility Assessment Rolling Type of Rolling Log Rolling Level of Assist Contact Guard Assistance Supine to Sit Supine to Sit Moderate Assistance 1 Person Assistance Bedrails Sit to Supine Sit to Supine Minimal Assistance 1 Person Assistance Bedrails Scooting Scooting to Edge of Bed Contact Guard Assistance PT-Transfer Assessment Sit to and From Stand Sit to and from Stand Contact Guard Assistance Use of Upper Extremities Equipment Transfer Assistive Device Gait Belt Front Wheeled Walker Orthotic/Prosthetic Devices or Brace: No Transfers Transfer Destination Bed Transfer Ability Level of Assist Contact Guard Assistance Use of Upper Extremities Gait Assessment Gait Gait Assistance Required: Contact Guard Assist Distance (Feet) 150 Able to Maintain Weight Bearing Status Yes During Gait Assistive Devices Assistive Device Gait Belt Front Wheeled Walker Orthotic/Prosthetic Devices or Brace: No Gait Deviations General Gait Pattern Decreased Stride Length Decreased Feet Clearance Flexed Trunk Factors Limiting Gait Function Factors Limiting Gait Function Decreased Activity Tolerance Decreased Strength Pain M5 PT-IP Objective Assessments Start: 09/27/18 16:47 Freq: NEEDED Status: Active Protocol: Document 09/27/18 16:20 AB (Rec: 09/27/18 17:11 AB [id number]) Orientation Orientation/Cognition Level of Alertness Alert Orientation Name Age Birthday Month Date Year Day of Week Place Situation Safety Awareness Decreased Safety Awareness Memory Description Short Term Impaired Gross Range of Motion Lower Extremity ROM Assessment Within Functional Limits Strength Lower Extremity Strength Assessment Bilaterally Impaired Hip 4-/5 Knee 4-/5 Sensation Assessment Sensation Gross Sensation WNL Muscle Tone Muscle Tone WNL Yes M6 PT-IP Treatment Start: 09/27/18 16:47 Freq: NEEDED Status: Active Protocol: Document 09/29/18 09:25 GGD (Rec: 09/29/18 12:28 GGD [id number]) Physical Therapy Treatment Education Education Provided Precautions M7 PT-IP Assessment and Plan Start: 09/27/18 16:47 Freq: NEEDED Status: Active Protocol: Document 09/29/18 09:25 GGD (Rec: 09/29/18 12:28 GGD [id number]) PT Summary Assessment and Plan Summary Assessment Summary Pt improved with mobility. He was able to progress his gait distance and bed mobility. He still needs assistance with bed mobilty. was able to assist with sit to supine. Pt safe for D/C home when medically stable. Frequency of Treatment Frequency Of Treatment Twice a Day Treatment Plan Physical Therapy Treatment Plan Bed Mobility Training Transfer Training Gait Training Therapeutic Exercise Balance Retraining Post Op Education Discharge Planning Hot or Cold Pack Neuromuscular Re-ed Coordination Retraining Manual Therapy Other Recommendations and Next Treatment ambulation Focus Discharge Recommendations PT Discharge Recommendations Home with Assistance
[2018-09-29 09:30] VITALS: TEMP 37.2
--- NOTE | 2018-09-29 10:38 | OT.IP.EVAL ---
Current Diagnoses Foot drop, left foot (09/27/18) Other spondylosis with radiculopathy, lumbar region (09/27/18) Spinal stenosis, lumbar region without neurogenic claudication (09/27/18) Surgery Performed Operation Date: 09/27/18 07:45 Actual Procedures p L3-4, L4-5 TLIF w/Posterior Instru. - Steve Ocampo MD Past Medical History (Last Updated 09/21/18 @ 15:10 by Kim Colón RN) Anxiety (Acute) Bronchitis (Acute) CAD (coronary artery disease) (Acute) Coccyx disorder (Acute) Diabetes (Acute) Eczema (Acute) HTN (hypertension) (Acute) Hyperlipidemia (Acute) Melanoma (Acute) Muscle weakness (Acute) Numbness and tingling (Acute) GEOVANNY on CPAP (Acute) Panic attacks (Acute) Surgical History (Last Updated 09/21/18 @ 14:57 by Kim Colón RN) Hx of heart artery stent (Acute ~2003) Hx of laminectomy (Acute) Hx of tonsillectomy (Acute) Occupational Therapy Inpatient Evaluation/Re-Eval M1 PT/OT-IP Prior Functional Status Start: 09/27/18 16:47 Freq: NEEDED Status: Active Protocol: Document 09/27/18 16:20 AB (Rec: 09/27/18 17:11 AB [id number]) Medical Review Prior Functional Status Medical History Reviewed Yes Communication able to make needs known Mobility and Gait stated that he is independent with all mobilities and ambulation without AD but has gotten weakness on BLE passed few months and unable to ambulate much Social History Household Members spouse Living Arrangements House Number of Floors (Floors) 3 or More Floors Number of Stairs To Enter/Railing? no steps to enter and has an elevator to get to other floor Home Environment Standard Height Toilet Walk in Shower Tub/Shower Home Equipment Front Wheel Walker Raised Toilet Seat w/Armrests Hand Held Shower Grab Bars In Shower Employment Status Retired Additional Social History Comment pt has a walk in shower but is broken; has a tub shower without grab bars/chair M1 PT/OT-IP Prior Functional Status Start: 09/28/18 13:01 Freq: NEEDED Status: Active Protocol: Document 09/29/18 10:20 [facility] (Rec: 09/29/18 10:38 [facility] [email or web address]) Medical Review Prior Functional Status Medical History Reviewed Yes Communication able to make needs known Mobility and Gait stated that he is independent with all mobilities and ambulation without AD but has gotten weakness on BLE passed few months and unable to ambulate much Social History Household Members spouse Living Arrangements House Number of Floors (Floors) 3 or More Floors Number of Stairs To Enter/Railing? no steps to enter and has an elevator to get to other floor Home Environment Standard Height Toilet Walk in Shower Tub/Shower Home Equipment Front Wheel Walker Raised Toilet Seat w/Armrests Hand Held Shower Grab Bars In Shower Employment Status Retired Additional Social History Comment pt has a walk in shower but is broken; has a tub shower without grab bars/chair M2 OT-IP Current Condition Start: 09/28/18 13:01 Freq: Status: Active Protocol: Document 09/29/18 10:20 [facility] (Rec: 09/29/18 10:38 [facility] [email or web address]) Occupational Therapy Current Condition Current Condition Evaluation Date 09/29/18 Treatment Diagnosis Lumbar spinal stenosis Diagnosis Onset Date 09/27/18 Post Operative Precautions Lumbar Precautions Log Roll No Twisting Limit Bending Lifting Restriction of 10 lbs Gait Belt above Incisional Area Weight Bearing Status Weight Bearing Status Weight Bear as Tolerated M3 OT- IP Subjective and Pain Start: 09/28/18 13:01 Freq: Status: Active Protocol: Document 09/29/18 10:20 [facility] (Rec: 09/29/18 10:38 [facility] [email or web address]) OT- Subjective Occupational Therapy Visit Type Type Initial Evaluation Visit Start Time 09:45 Visit Stop Time 10:15 Total Visit Minutes 30 Occupational Therapy Visit Comments Patient Comments Pt wqanting to wait fro a shower, however insisting pt take a shower now as looking to be discharged today . OT Pain Assessment Pain When Pain Assessed At Rest Pain Present Pain Present Pain Reported M4 OT- IP ADL's Start: 09/28/18 13:01 Freq: Status: Active Protocol: Document 09/29/18 10:20 [facility] (Rec: 09/29/18 10:38 [facility] [id number]) OT ADL-Dressing General Eval Upper Body Dressing Ability Standby Assistance Lower Body Dressing Ability Maximum Assistance Areas Needing Assistance Underpants/Brief Pants/Shorts Socks Comments OT Dressing Comments At thsi time MAX A for all LB dressing needs due to pt wanting to assist for all needs. Did educate pt on manager of sustainability and other LB aed. OT ADL-Bathing Bathing Type Bathing Type Shower General Evaluation Bathing Ability Moderate Assistance Areas Needing Assistance Retrieving/Setting Up Items Wash/Dry Back Wash/Dry Perineal Area Wash/Dry Lower Extremities Devices Bathing Equipment Shower Chair with Arms Comments OT Bathing Comments Pt able to roll picker tub bench for pt to use at home. Pt able to assist pt safely for all needs of showering at this time. Emphasized that pt and communicate with each other and try to do things consistently, getting up , use of FWW,etc... M5 OT- IP IADL's Start: 09/28/18 13:01 Freq: Status: Active Protocol: Document 09/29/18 10:20 [facility] (Rec: 09/29/18 10:38 [facility] [email or web address]) OT-Instrumental Activities of Daily Living Estate Planning Director Estate Planning Director Caregiver Provides Assist Driving Driving Caregiver Provides Assist M6 OT- IP Functional Cognition Start: 09/28/18 13:01 Freq: Status: Active Protocol: Document 09/29/18 10:20 [facility] (Rec: 09/29/18 10:38 [facility] [email or web address]) Cognitive Factors Limiting Selfcare Function Cognitive Ability Level of Alertness Alert Patient Orientation Name Place Situation Attention Span Ability Capable of Focused Attention Capable of Sustained Attention Ability to Follow Commands Able to Follow Multi-Step Commands Memory Description Short Term Impaired Safety Awareness Decreased Ability to Apply Precautions Underestimates Need for Assistance Cognitive Comments Cognitive Assessment Comments Pt a bit impulsive and needing cues to incorporate back precautions. VC to sit fro dressing needs, ask for assist and slow down. OT- Vision and Hearing OT- Hearing Assessment OT- Hearing Assessment WFL M7 OT- IP Mobility and Balance Start: 09/28/18 13:01 Freq: Status: Active Protocol: Document 09/29/18 10:20 [facility] (Rec: 09/29/18 10:38 [facility] [email or web address]) OT- Bed Mobility Assessment Rolling Type of Rolling Roll to Left Supine to Sit Supine to Sit Assist Contact Guard Assistance 1 Person Assistance Bedrails Sit to Supine Sit to Supine Assist Minimal Assistance 1 Person Assistance Scooting Scooting to Edge of Bed Standby Assistance OT-Transfer Assessment Sit to and From Stand Sit to and from Stand Standby Assistance Contact Guard Assistance Minimal Assistance Transfers Transfer Ability Standby Assistance Contact Guard Assistance Technique Transfer Destination Bed Chair Shower Stall Devices Transfer Assistive Devices Gait Belt Front Wheeled Walker Comments Mobility Comments Pt assist to hold to FWW as pt tends to push up from FWW even though educated to push up from bed,chair. CGA for balance initially and at times BO to stand from lower surfaces. Cues for to stay close to him. OT- Balance Assessment Sitting Balance and Reactions Static Sitting Balance Ability Normal Dynamic Sitting Balance Ability Normal Standing Balance and Reactions Static Standing Balance Ability Good Dynamic Standing Balance Ability Fair M8 OT- IP Objective Assessments Start: 09/28/18 13:01 Freq: Status: Active Protocol: Document 09/29/18 10:20 [facility] (Rec: 09/29/18 10:38 [facility] [email or web address]) OT Gross Range of Motion Upper Extremity Range of Motion Assessment Within Functional Limits M9 OT- IP Assessment and Plan Start: 09/28/18 13:01 Freq: Status: Active Protocol: Document 09/29/18 10:20 [facility] (Rec: 09/29/18 10:38 [facility] [email or web address]) OT Summary Assessment and Plan Potential Rehabilitation Potential Good Analytic Complexity at Evaluation Low Summary OT Impairments Pain Functional Cognition Functional Mobility Dressing Toileting Bathing Shower Transfers Progress Towards Goals Progressing Toward Goals Slow Progress due to Pain Assessment Summary Pt low complexity and main barrier is pain and a bit impulsive. Pt able to assist pt safely and has been through caregiver training for all ADl and functional mobility needs. Pt looking to go home today if medically stable. Goals Patient/Caregiver Education Goal Demonstrate Post-Op Precautions Caregiver Independent Assisting Patient Days to Meet Goals 1 Frequency of Treatment Frequency Of Treatment Once a Day Treatment Plan OT Treatment Plan Patient/Family Education Discharge Planning Discharge Recommendations OT Discharge Recommendations Home with Assistance Home Equipment Needs Tub bench, bedrail
--- NOTE | 2018-09-29 11:04 | PC.NURSE ---
Addendum entered by Kamala Low R.N. 09/29/18 13:59: /PAIN/MS - pt voided x2 after mcclelland dc'd, states dilaudid has provided improved relief with the vistaril and pt would like to dc home, reviewed dc instructions, given 2mg po dilaudid, 650mg po tylenol and 25mg po vistaril prior to discharge, pt has been off his plavix since early sep in antic of back surgery and dc med list shows as stopped, advised pt to contact md on Monday regarding restart. Belongings gathered, including glasses, clothing, cell phone, his own meds were returned, tsf to and escorted to friend's car, Latrice in PT assisted into car. Original Note: AM NOTE - pt is alert and asking pain medication, states 6 on scale 0/10, states earlier medications providing some relief, does not last, denies numbness hands or feet, states foot drop has improved after surgery, moving all extremities, ra 94%, SUZANNA Adkins in this am and pt given iv dose prednisone and changed to po dilaudid, started with 2mg po and 25mg vistaril this am, was then able to ambul w/fww into hallway with phys therapy. OT in and showered this am, changed barrier dsg to coversite, stapled incision intact w/o drainage, surrounding bruising, mcclelland cath was dc'd and pt has urinal at bedside, anticipating home this afternoon when pain managed and after voiding. Spouse in and the dilaudid is providing more effective relief, given scripts to spouse to fill prior to discharge.
--- NOTE | 2018-09-29 13:35 | PT.IPTN ---
Current Diagnoses Foot drop, left foot (09/27/18) Other spondylosis with radiculopathy, lumbar region (09/27/18) Spinal stenosis, lumbar region without neurogenic claudication (09/27/18) Surgery Performed Operation Date: 09/27/18 07:45 Actual Procedures p L3-4, L4-5 TLIF w/Posterior Instru. - Steve Ocampo MD Physical Therapy Treatment Note M2 PT-IP Current Condition Start: 09/27/18 16:47 Freq: NEEDED Status: Active Protocol: Document 09/27/18 16:20 AB (Rec: 09/27/18 17:11 AB [id number]) Physical Therapy Current Condition Current Condition Evaluation Date 09/27/18 Treatment Diagnosis L3-4, L4-5 posterior fusion and lami; difficulty in walking Onset Date 09/27/18 Precautions Lumbar Precautions Log Roll No Twisting Limit Bending Lifting Restriction of 10 lbs Gait Belt above Incisional Area M3 PT-IP Subjective Start: 09/27/18 16:47 Freq: NEEDED Status: Active Protocol: Document 09/29/18 13:25 [facility] (Rec: 09/29/18 13:58 [facility] [email or web address]) Subjective Physical Therapy Visit Type Type Treatment Note Visit Start Time 13:15 Visit Stop Time 13:25 Total Visit Minutes 10 Number of BIN CLEANER Visits 4 Physical Therapy Visit Comments Patient Comments Pt ready to transfer to car. M4 PT-IP Mobility and Gait Start: 09/27/18 16:47 Freq: NEEDED Status: Active Protocol: Document 09/29/18 13:25 [facility] (Rec: 09/29/18 13:58 [facility] [email or web address]) PT-Transfer Assessment Sit to and From Stand Sit to and from Stand Contact Guard Assistance Use of Upper Extremities Equipment Transfer Assistive Device Gait Belt Front Wheeled Walker Orthotic/Prosthetic Devices or Brace: No Transfers Transfer Destination Car Transfer Ability Level of Assist Contact Guard Assistance Use of Upper Extremities Comments Mobility Comments Pt needed min cues for car transfers. Gait Assessment Gait Gait Assistance Required: Contact Guard Assist Distance (Feet) 3 Assistive Devices Assistive Device Gait Belt Front Wheeled Walker Orthotic/Prosthetic Devices or Brace: No Gait Deviations General Gait Pattern Decreased Stride Length Decreased Feet Clearance Flexed Trunk Factors Limiting Gait Function Factors Limiting Gait Function Decreased Activity Tolerance Decreased Strength Pain M5 PT-IP Objective Assessments Start: 09/27/18 16:47 Freq: NEEDED Status: Active Protocol: Document 09/27/18 16:20 AB (Rec: 09/27/18 17:11 AB [id number]) Orientation Orientation/Cognition Level of Alertness Alert Orientation Name Age Birthday Month Date Year Day of Week Place Situation Safety Awareness Decreased Safety Awareness Memory Description Short Term Impaired Gross Range of Motion Lower Extremity ROM Assessment Within Functional Limits Strength Lower Extremity Strength Assessment Bilaterally Impaired Hip 4-/5 Knee 4-/5 Sensation Assessment Sensation Gross Sensation WNL Muscle Tone Muscle Tone WNL Yes M6 PT-IP Treatment Start: 09/27/18 16:47 Freq: NEEDED Status: Active Protocol: Document 09/29/18 09:25 [facility] (Rec: 09/29/18 12:28 [facility] [id number]) Physical Therapy Treatment Education Education Provided Precautions M7 PT-IP Assessment and Plan Start: 09/27/18 16:47 Freq: NEEDED Status: Active Protocol: Document 09/29/18 13:25 [facility] (Rec: 09/29/18 13:58 [facility] [email or web address]) PT Summary Assessment and Plan Summary Assessment Summary Pt improving in mobility. He was CGA and cues for transfer to car. Pt safe for home D/C when medically stable. Frequency of Treatment Frequency Of Treatment Twice a Day Treatment Plan Physical Therapy Treatment Plan Bed Mobility Training Transfer Training Gait Training Therapeutic Exercise Balance Retraining Post Op Education Discharge Planning Hot or Cold Pack Neuromuscular Re-ed Coordination Retraining Manual Therapy Recommendations To Nursing Amount of Assist Needed 1 Person Assist Discharge Recommendations PT Discharge Recommendations Home with Assistance
--- NOTE | 2018-10-01 08:33 | CM.DPNOTE ---
NATALIA from [facility]; provided DC date per request. JW
== END 2018-09-29 12:45 | disposition home or self-care (01) | DRG 455 ==
PROVIDERS: Admitting Provider Orthopaedic Surgery Orthopaedic Surgery of the Spine; Family Provider Family Medicine; PCP Family Medicine; Visit Provider Orthopaedic Surgery Orthopaedic Surgery of the Spine
PROC: 0SG10AJ Fusion of 2 or more Lumbar Vertebral Joints with Interbody Fusion Device, Posterior Approach, Anterior Column, Open Approach (ICD-10-PCS; principal; 2018-09-27 07:45)
DX: M48.062 Spinal stenosis, lumbar region with neurogenic claudication (principal); M21.372 Foot drop, left foot; M47.26 Other spondylosis with radiculopathy, lumbar region; M51.26 Other intervertebral disc displacement, lumbar region; I10 Essential (primary) hypertension; E78.5 Hyperlipidemia, unspecified; E11.9 Type 2 diabetes mellitus without complications; Z79.4 Long term (current) use of insulin; I25.10 Atherosclerotic heart disease of native coronary artery without angina pectoris; F41.9 Anxiety disorder, unspecified
CPT/HCPCS: 36415; 72100; 76001; 82962; 85014; 85018; 94760; 94762; 97116; 97162; 97165; 97530; 97535; C1776; C9290; J0131; J0171; J0330; J0690; J1100; J1170; J2060; J2250; J2405; J2704; J2920; J3010; J3410

== ENCOUNTER → 2019-04-22 13:56 | Outpatient (CLI) | payer OTHER, SELFPAY ==
[2018-09-27 14:18] VITALS: BMI 36.9
--- NOTE | 2019-04-22 | DI.CT.S_ITS ---
PROCEDURE: CT LUMBAR SPINE WO CON INDICATIONS: ARTHRODESIS STATUS TECHNIQUE: Noncontrast 3 mm thick sections acquired from the T12 level to the sacrum. Sagittal and coronal reformats were constructed. For radiation dose reduction, the following was used: automated exposure control. COMPARISON: [facility] [place], MR, MR LUMBAR SPINE WITHOUT CONTRAST, 08/14/2018, 9:25. [facility] [place], CR, XR LUMBAR SPINE 2 OR 3 VIEWS, 04/12/2019, 13:39. FINDINGS: Image quality: Diagnostic. Bones: There are 5 lumbar-type vertebral bodies. The lowest intervertebral disk space is designated as L5-S1. Anterior wedging involving the T11 and T12 vertebral bodies is unchanged since the MRI dated 08/14/18, suggesting a chronic process. Otherwise, the remainder of the vertebral body heights are well-maintained without evidence to suggest an acute compression fracture. The bone mineralization is within normal limits. Post surgical changes are again evident related to an L3-L5 discectomy and fusion procedure. Interbody spacers are present at L3-4 and L4-5. There are bilateral transpedicular screws fixed in place by posterior fixation rods at each level. The orthopedic hardware is intact without surrounding lucency. The pedicle screws at L3 at closely abut the superior L3 endplate. However, these screws do not appear to extend beyond the superior endplate. Otherwise, the screws appear to be properly positioned within the vertebral bodies and pedicles. There is a bony neural foraminal narrowing are identified involving these levels (left greater than right), which are most pronounced involving the right L5 neural foramen, which appears to predominantly be related to associated facet arthropathy. Mild to moderate degenerative changes of the imaged thoracolumbar spine are presented demonstrating areas of disc height loss, disc osteophyte complexes, and facet arthrosis. The spinous are more prominent involving the lower lumbar facet joints. Degenerative changes of the bilateral sacroiliac joints are present. Soft tissues: There is aortic atherosclerosis. Multiple cysts appear to be present involving both kidneys, not adequately characterized. Otherwise, the remainder of the soft tissues of the imaged abdomen and pelvis are within normal limits. IMPRESSION: 1. Expected post surgical changes related to an L3-L5 discectomy and fusion. The hardware appears intact. Bony alignment through this region is within normal limits. 2. Bony neural foraminal narrowing involving the lower lumbar spine appear to be related to facet arthrosis (most pronounced at L5-S1). 3. No acute fractures. Dictated by: Ze Means M.D. on 04/22/2019 at 13:45 Approved by: Ze Means M.D. on 04/22/2019 at 14:23
== END ==
PROVIDERS: Family Provider Family Medicine; PCP Family Medicine; Visit Provider Orthopaedic Surgery Orthopaedic Surgery of the Spine
DX: M47.817 Spondylosis without myelopathy or radiculopathy, lumbosacral region (principal); M47.815 Spondylosis without myelopathy or radiculopathy, thoracolumbar region; I70.0 Atherosclerosis of aorta; N28.1 Cyst of kidney, acquired; Z98.1 Arthrodesis status
CPT/HCPCS: 72131

== ENCOUNTER → 2021-01-01 09:02 | Outpatient (CLI) | payer OTHER, SELFPAY ==
[2018-09-27 14:18] VITALS: BMI 36.9
[2021-01-01] MEDS: COVID-19 VACC #1, MRNA(MOD) 100 MCG/0.5 ML VIAL IM (09:11)
== END ==
PROVIDERS: Family Provider Family Medicine; PCP Family Medicine; Visit Provider Internal Medicine
DX: Z23 Encounter for immunization (principal)
CPT/HCPCS: 0011A; 91301

== ENCOUNTER → 2021-01-29 08:56 | Outpatient (CLI) | payer OTHER, SELFPAY ==
[2018-09-27 14:18] VITALS: BMI 36.9
[2021-01-29] MEDS: COVID-19 VACC #2, MRNA(MOD) 100 MCG/0.5 ML VIAL IM (09:03)
== END ==
PROVIDERS: Family Provider Family Medicine; PCP Family Medicine; Visit Provider Internal Medicine
DX: Z23 Encounter for immunization (principal)
CPT/HCPCS: 0012A; 91301

== ENCOUNTER 2022-11-16 07:24 | Day surgery (SDC) | payer MEDICARE, SELFPAY ==
[2018-09-27 14:18] VITALS: BMI 36.9
[2022-11-16 07:59] VITALS: BP 145/85; PULSE 78; RESP 16; TEMP 36.2; O2SAT 98; BMI 36.9
[2022-11-16] MEDS: LACTATED RINGERS 1,000 ML 42 ML IV (08:14)
--- NOTE | 2022-11-16 08:23 | PM.OP.COLON ---
Operative Date/Time/Diagnoses Date of procedure: 11/16/22 Pre-op diagnosis: See indication and findings Procedure & Clinicians Study performed: Colonoscopy Indications: Family history of colon cancer in first-degree relative/mother . Previous colonoscopy is negative Surgeon: Chintan To Procedure Notes Procedure in detail: After informed consent was obtained the patient was placed in left lateral decubitus position. The video colonoscope was introduced the rectum slowly advanced cecum. Preparation was good. On slow withdrawal mucosa was carefully examined. The scope was removed. The patient tolerated the procedure well. Blood loss none Complications none Sedation propofol Findings 1. Normal colonoscopy to cecum other than small internal hemorrhoids. Follow-up colonoscopy in 5 years. He can restart his Plavix today.
--- NOTE | 2022-11-16 08:25 | PM.HP.1 ---
History of Present Illness History of Present Illness Date Patient Seen: 11/16/22 Chief complaint: Colonoscopy Narrative: Family history of colon cancer in his mother. Previous colonoscopies negative Patient History Medical History (Updated 11/16/22 @ 07:58 by Reuben Sweet, RN) Anxiety Bronchitis CAD (coronary artery disease) Coccyx disorder Diabetes Eczema HTN (hypertension) Hyperlipidemia Melanoma Muscle weakness Numbness and tingling GEOVANNY on CPAP Panic attacks PONV (postoperative nausea and vomiting) Surgical History Hx of heart artery stent (~2003) Hx of laminectomy Hx of tonsillectomy Family & Social History Social History: household members spouse Tobacco & Substance use: Tobacco type cigarettes Smoking Status Former smoker alcohol intake never Substance Use Type does not use Meds Home Medications and Allergies Home Medications Medication Instructions Recorded Confirmed Type aspirin 81 mg tablet,delayed 81 mg PO BEDTIME ##0 12/09/17 11/16/22 History release atorvastatin 40 mg tablet (Lipitor) 40 mg PO BEDTIME ##0 12/09/17 11/16/22 History coenzyme Q10 100 mg capsule (Co 1 tab PO DAILY ##0 12/09/17 11/16/22 History Q-10) colesevelam 625 mg tablet (WelChol) 3 tab PO BID ##0 12/09/17 11/16/22 History empagliflozin 25 mg tablet 1 tab PO QAM ##0 12/09/17 11/16/22 History (Jardiance) escitalopram oxalate 10 mg tablet 10 mg PO QAM ##0 12/09/17 11/16/22 History (Lexapro) insulin glargine 100 unit/mL (3 80 units SUBCUT BEDTIME ##0 12/09/17 11/16/22 History mL) subcutaneous pen (Lantus Solostar U-100 Insulin) isosorbide mononitrate 30 mg 30 mg PO QAM ##0 12/09/17 11/16/22 History tablet,extended release 24 hr metformin 1,000 mg tablet,extended 1,000 mg PO BID ##0 12/09/17 11/16/22 History release 24hr (Fortamet) metoprolol succinate 50 mg 25 mg PO QAM ##0 12/09/17 11/16/22 History tablet,extended release 24 hr (Toprol XL) multivitamin (Multiple Vitamins 1 tab PO DAILY ##0 12/09/17 11/16/22 History tablet) docusate sodium 100 mg capsule 100 mg PO BID #0 caps 09/29/18 11/16/22 Rx Allergies Allergy/AdvReac Type Severity Reaction Status Date / Time hydromorphone [From Dilaudid] Allergy Intermediate Rash Verified 11/16/22 07:42 No Known Allergies Allergy Uncoded 09/27/18 07:11 Exam Vital Signs (past 8 hours): - 11/16/22 07:59 Temperature 97.1 F L Pulse Rate 78 Respiratory Rate 16 Blood Pressure 145/85 H Pulse Oximetry 98 Oxygen Delivery Method Room Air Oxygen Delivery Method Room Air Narrative Exam Narrative: Oropharynx free of lesions Chest clear to auscultation percussion Cardiac exam reveals no S3 or murmur Assessment & Plan Assessment & Plan narrative: Family history of colon cancer in a first-degree relative need for follow-up colonoscopy. Risks benefits alternatives have been explained. Time Spent With Patient Critical Care time: I spent a total of [] minutes of critical care time on this patient's care today; this time is exclusive of procedural time.
[2022-11-16 08:50] VITALS: BP 121/77; PULSE 76; RESP 18; TEMP 36.1; O2SAT 95
[2022-11-16 08:55] VITALS: BP 121/79; PULSE 78; RESP 16; O2SAT 95
[2022-11-16 09:00] VITALS: BP 148/93; PULSE 81; RESP 14; TEMP 36.3; O2SAT 94
--- NOTE | 2022-11-16 09:01 | SUR.PHASEII ---
pt denies pain and is drinking coffee. No distress noted. No complaints voiced.
== END 2022-11-16 09:16 | disposition home or self-care (01) ==
PROVIDERS: Family Provider Family Medicine; PCP Family Medicine; Referring Provider Internal Medicine Gastroenterology; Visit Provider Internal Medicine Gastroenterology
PROC: 0DJD8ZZ Inspection of Lower Intestinal Tract, Via Natural or Artificial Opening Endoscopic (ICD-10-PCS; CPT 45378; principal; 2022-11-16 08:30)
DX: Z12.11 Encounter for screening for malignant neoplasm of colon (principal); Z80.0 Family history of malignant neoplasm of digestive organs; K64.8 Other hemorrhoids
CPT/HCPCS: G0105; J2250; J2704; J3010

== ENCOUNTER → 2023-01-09 08:11 | Outpatient (CLI) | payer MEDICARE, SELFPAY ==
[2018-09-27 14:18] VITALS: BMI 36.9
--- NOTE | 2023-01-09 | DI.US.S_ITS ---
PROCEDURE: US ABD AORTA ANEURYSM SCREEN INDICATIONS: SCREENING TECHNIQUE: Real time scanning was performed of the aorta and iliac arteries, with image documentation. COMPARISON: None. FINDINGS: Aorta: Proximal aortic diameter measures 2.9 cm. Mid-aorta measures 2.1 cm. Distal aortic diameter is 1.8 cm. Iliac arteries: Right common iliac artery measures 1.4 cm. Left common iliac artery measures 1.0 cm. IMPRESSION: No sonographic evidence for abdominal aortic aneurysm. Based on consensus criteria, recommend follow-up screening ultrasound in 5 years. Dictated by: Barney Bland M.D. on 01/09/2023 at 9:27 Approved by: Barney Bland M.D. on 01/09/2023 at 9:28
== END ==
PROVIDERS: Family Provider Family Medicine; PCP Family Medicine; Referring Provider Family Medicine; Visit Provider Family Medicine
DX: Z13.6 Encounter for screening for cardiovascular disorders (principal)
CPT/HCPCS: 76706

== ENCOUNTER → 2023-06-29 08:18 | Outpatient (CLI) | payer MEDICARE, SELFPAY ==
[2018-09-27 14:18] VITALS: BMI 36.9
--- NOTE | 2023-06-29 | DI.CT.S_ITS ---
PROCEDURE: CT ABDOMEN PELVIS W CON INDICATIONS: ABDOMINAL PAIN TECHNIQUE: After the administration of oral and intravenous contrast, axial sections were acquired from the lung bases to the pubic symphysis. Coronal and sagittal reformats were performed. For radiation dose reduction, the following was used: automated exposure control, adjustment of mA and/or kV according to patient size. COMPARISON:None. FINDINGS: Image quality: Excellent. Lung bases: Unremarkable. Heart: Relatively dense LAD region calcifications. ABDOMEN: Liver: Unremarkable. Gallbladder: Unremarkable. Biliary ducts: Unremarkable. Pancreas: Unremarkable. Spleen: Unremarkable. Adrenal Glands: Unremarkable. Kidneys and Ureters: No stone or hydronephrosis or mass identified. Numerous bilateral renal cysts, including an exophytic right upper pole cyst measuring 9.2 cm. Stomach and Bowel: Stomach, small bowel loops, and colon are unremarkable. A focal area of narrowing in the distal descending colon is felt to represent peristalsis and not a constricting lesion, based on short the narrowing as period reference axial image 71/2 and coronal image 30/3. Peritoneum: No abnormal intraperitoneal fluid. No free air. Ventral Wall: No hernia. Abdominal Nodes: No retroperitoneal or mesenteric adenopathy by size criteria. Vessels: Aorta and inferior vena cava are normal in size. PELVIS: Pelvic Organs: Unremarkable. Bladder: Bladder is distended. It has a smooth wall. Mild prostate enlargement.. Pelvic Nodes: No enlarged lymph nodes. Miscellaneous: No inguinal hernias are seen. Bones: Remote posterior lateral fusion and interbody fusion at4 L3 through L5. No evidence of hardware failure or loosening. Old T12 compression. IMPRESSION: 1. Distended bladder, mild prostate enlargement. 2. Incidental 9.2 cm exophytic right renal cyst. 3. No acute process. 4. Coronary artery calcifications. Dictated by: Jacob Lang M.D. on 06/29/2023 at 11:33 Approved by: Jacob Lang M.D. on 06/29/2023 at 11:39 the
== END ==
PROVIDERS: Family Provider Family Medicine; PCP Family Medicine; Referring Provider Family Medicine; Visit Provider Family Medicine
DX: N32.89 Other specified disorders of bladder (principal); N28.1 Cyst of kidney, acquired; N40.0 Benign prostatic hyperplasia without lower urinary tract symptoms; R10.84 Generalized abdominal pain; I25.10 Atherosclerotic heart disease of native coronary artery without angina pectoris
CPT/HCPCS: 74177; Q9967

== ENCOUNTER → 2023-09-06 15:13 | Outpatient (CLI) | payer MEDICARE, SELFPAY ==
[2018-09-27 14:18] VITALS: BMI 36.9
--- NOTE | 2023-09-06 | DI.US.S_ITS ---
PROCEDURE: US RENAL COMPLETE INDICATIONS: RENAL CYSTS - POST-VOID RESIDUAL TECHNIQUE: Real-time scanning was performed of the kidneys and bladder, with image documentation. COMPARISON: None. FINDINGS: Kidneys: Kidneys are normal in size. Right kidney measures 14.7 cm long; left kidney measures 15 cm long. Renal cortical echotexture is normal. No hydronephrosis or nephrolithiasis. Multiple anechoic simple cysts, the largest of which on the right measures 9.4 x 7.2 x 9.3 cm and on the left measures 4.5 x 4.2 x 4.2 cm. No septations or nodularity. No suspicious solid mass lesions. Bladder: Pre-void bladder volume is 2392 mL. Post-void residual is 1003 mL. Pre-void images demonstrate no intraluminal masses or stones. On pre-void images, no ureteral jets are noted with color Doppler interrogation. (Of note, ureteral jets may not be detectable in up to 25% of cases due to insufficient differences in specific gravity between ureteral and bladder urine). Miscellaneous: No free pelvic fluid. IMPRESSION: 1. No hydronephrosis or nephrolithiasis bilaterally. Bilateral renal simple cysts with no sonographic evidence of suspicious features. 2. Postvoid residual is 1003 mL suggestive of urinary retention. Dictated by: Hector Hope M.D. on 09/08/2023 at 13:28 Approved by: Hector Hope M.D. on 09/08/2023 at 13:43
== END ==
PROVIDERS: Family Provider Family Medicine; PCP Family Medicine; Referring Provider Urology; Visit Provider Urology
DX: N40.0 Benign prostatic hyperplasia without lower urinary tract symptoms (principal); N28.1 Cyst of kidney, acquired
CPT/HCPCS: 76770

== ENCOUNTER → 2024-04-03 08:11 | Outpatient (CLI) | payer MEDICARE, SELFPAY ==
[2018-09-27 14:18] VITALS: BMI 36.9
== END ==
PROVIDERS: Family Provider Family Medicine; PCP Family Medicine; Referring Provider Urology; Visit Provider Urology
DX: Z87.440 Personal history of urinary (tract) infections (principal)
CPT/HCPCS: 87077; 87086; 87186

== ENCOUNTER → 2024-12-13 10:55 | Outpatient (CLI) | payer MEDICARE, SELFPAY ==
[2018-09-27 14:18] VITALS: BMI 36.9
[2024-12-13 11:41] LABS: Alanine Aminotransferase 175 IU/L (<50); Albumin 4.1 g/dL (3.5-5.0); Albumin Globulin Ratio 1.9 (1.0-2.8); Alkaline Phosphatase 96 U/L (38-126); Aspartate Aminotransferase 126 IU/L (17-59); BUN Creatinine Ratio 15.2 (6-22); Bilirubin Total 0.8 mg/dL (0.2-1.3); Blood Urea Nitrogen 20 mg/dL (9-20); Calcium 9.8 mg/dL (8.4-10.2); Carbon Dioxide 27 mmol/L (22-32); Chloride 113 mmol/L (98-107); Estimated Glomerular Filt Rate 59 mL/min (>60); Globulin 2.2 g/dL (1.7-4.1); Glucose 154 mg/dL (80-110); HEMOLYSIS < 15 (0-50); Potassium 3.8 mmol/L (3.4-5.1); Sodium 149 mmol/L (137-145); Total Protein 6.3 g/dL (6.3-8.2)
== END ==
PROVIDERS: Family Provider Family Medicine; PCP Family Medicine; Referring Provider Nurse Practitioner; Visit Provider Nurse Practitioner
DX: Z98.890 Other specified postprocedural states (principal); I25.118 Atherosclerotic heart disease of native coronary artery with other forms of angina pectoris
CPT/HCPCS: 36415; 80053

== ENCOUNTER 2025-02-06 12:21 | Observation (INO) | payer MEDICARE, SELFPAY ==
[2018-09-27 14:18] VITALS: BMI 36.9
[2025-02-06] VITALS (27 sets, daily range): BP systolic 91–173; BP diastolic 44–111; PULSE 83–106; RESP 13–26; TEMP 35.7–36.7; O2SAT 91–100; BMI 33.0
--- NOTE | 2025-02-06 12:32 | EKG_ITS ---
[address] [address] Test Date: 2025-02-06 Pat Name: Junaid Sánchez Department: Room: Gender: Male Legal Editor: SHARON : 1955 Requested By: Order Number: [id number] Reading MD: Filemon Maya Measurements Intervals [place] Rate: 83 P: 24 OH: 96 QRS: -14 QRSD: 86 T: 65 QT: 394 QTc: 462 Interpretive Statements Sinus rhythm with short OH Electronically Signed On 02-06-2025 17:06:38 PDT by Filemon Maya
--- NOTE | 2025-02-06 12:37 | DI.RAD.S_ITS ---
PROCEDURE: XR CHEST 1V INDICATIONS: chest pain TECHNIQUE: One view of the chest was acquired. COMPARISON: None. FINDINGS: Surgical changes and devices: Sternal wires Lungs and pleura: Lungs are clear. No pleural effusions or pneumothorax. Mediastinum: Mediastinal contours appear normal. Heart size is enlarged. Bones and chest wall: No suspicious bony lesions. Overlying soft tissues appear unremarkable. IMPRESSION: No acute pulmonary process. Dictated by: Fadia Muller M.D. on 02/06/2025 at 13:37 Approved by: Fadia Muller M.D. on 02/06/2025 at 13:38
[2025-02-06 12:44] LABS: Add Manual Diff / Slide Review NO; Basophils Absolute Auto 0 /uL (0-100); Basophils Percent Auto 0.3 % (0-2); Eosinophils Absolute Auto 200 /uL (0-450); Eosinophils Percent Auto 2.7 % (2-4); Hematocrit 36.8 % (41-53); Hemoglobin 12.5 g/dL (13.5-17.5); INR 1.4 (0.9-1.3); Lymphocytes Absolute Auto 1800 /uL (1100-4500); Lymphocytes Percent Auto 26.4 % (25-40); Mean Corpuscular HGB Conc 33.9 % (30-36); Mean Corpuscular Hemoglobin 30.3 PG (26-34); Mean Corpuscular Volume 89.3 fL (80-100); Monocytes Absolute Auto 700 /uL (0-900); Monocytes Percent Auto 10.8 % (3-14); Neutrophils Absolute Auto 4200 /uL (1500-7000); Neutrophils Percent Auto 59.8 % (50-75); Platelet Count 204 X10^3/uL (150-400); Prothrombin Time 15.3 SECONDS (9.4-12.5); Red Blood Cell Count 4.12 X10^6/uL (4.5-5.9); Red Cell Distribution Width 13.3 % (11.6-14.8); White Blood Cell Count 6.9 X10^3/uL (4.5-11.0)
[2025-02-06 12:47] LABS: PTT Partial Thromboplastin Tim 34 SECONDS (25.1-36.5)
[2025-02-06 12:52] LABS: Alanine Aminotransferase 28 IU/L (<50); Albumin 4.6 g/dL (3.5-5.0); Albumin Globulin Ratio 1.8 (1.0-2.8); Alkaline Phosphatase 67 U/L (38-126); Aspartate Aminotransferase 35 IU/L (17-59); BUN Creatinine Ratio 13.7 (6-22); Bilirubin Total 0.7 mg/dL (0.2-1.3); Blood Urea Nitrogen 14 mg/dL (9-20); Calcium 10.2 mg/dL (8.4-10.2); Carbon Dioxide 22 mmol/L (22-32); Chloride 105 mmol/L (98-107); Creatine Kinase 63 U/L (55-170); Estimated Glomerular Filt Rate > 60 mL/min (>60); Globulin 2.5 g/dL (1.7-4.1); Glucose 122 mg/dL (70-99); HEMOLYSIS < 15 (0-50); Lipase 333 U/L (23-300); Magnesium 1.7 mg/dL (1.6-2.3); Potassium 3.9 mmol/L (3.4-5.1); Sodium 140 mmol/L (137-145); Total Protein 7.1 g/dL (6.3-8.2)
[2025-02-06 13:03] LABS: NT-proBNP (BNP-Adult 18+) 82 pg/mL (<125); Troponin I < 0.012 ng/mL (0.01-0.034)
--- NOTE | 2025-02-06 13:03 | DI.CT.S_ITS ---
PROCEDURE: CT HEAD/BRAIN WO CON INDICATIONS: fall: cannot rule out hit head TECHNIQUE: Noncontrast 4.5 mm thick angled axial sections acquired from the foramen magnum to the vertex, with coronal and sagittal reformats. For radiation dose reduction, the following was used: automated exposure control, adjustment of mA and/or kV according to patient size. COMPARISON: None. FINDINGS: Image quality: Diagnostic. CSF spaces: Basal cisterns are patent. No extra-axial fluid collections. The ventricles are symmetric in size and shape. Brain: No intracranial bleeds or mass effect There are periventricular and deep white matter chronic small vessel ischemic changes. There is intracranial internal carotid artery atherosclerosis. Skull and face: Calvarium and visualized facial bones appear intact, without suspicious lesions. Sinuses: Visualized sinuses and mastoids are clear. IMPRESSION: 1. No acute intracranial process. 2. Mild atrophy and chronic microvascular ischemic changes. Dictated by: Fadia Muller M.D. on 02/06/2025 at 14:05 Approved by: Fadia Muller M.D. on 02/06/2025 at 14:07
--- NOTE | 2025-02-06 13:04 | DI.CT.S_ITS ---
PROCEDURE: CT CERVICAL SPINE WO CON INDICATIONS: fall cannot rule out hit head TECHNIQUE: Noncontrast 3 mm thick sections acquired from the skull base to the T4 level. Sagittal and coronal reformats were then constructed. For radiation dose reduction, the following was used: automated exposure control, adjustment of mA and/or kV according to patient size. COMPARISON: None. FINDINGS: Image quality: Excellent. Bones: No fractures or dislocations. Visualized superior ribs are intact. Multilevel degenerative changes. Soft tissues: Prevertebral soft tissues are normal in thickness. No paravertebral hematomas. No apical pneumothoraces. IMPRESSION: No displaced fracture or traumatic subluxation. Dictated by: Fadia Muller M.D. on 02/06/2025 at 14:07 Approved by: Fadia Muller M.D. on 02/06/2025 at 14:08
--- NOTE | 2025-02-06 17:00 | PM.HP.1 ---
History of Present Illness History of Present Illness Date Patient Seen: 02/06/25 Time Patient Seen: 14:30 Chief complaint: hypotension s/p CABG 10 wks Narrative: cC: orthostatic hypotension patient with history of CABG 10 weeks ago presents to ED with complaint of extreme syncope examination in the ED revealed major orthostatic hypotension from systolic 173->111 on standing up. reports he has been doing well since the surgery but this orthostatic issue has been more pronounced. discussed case with ED physician who talked with Dr. Duran Cardiology they agree medications are most likely the issue here not a problem from surgery they recommend stopping ramipril and tadalafil reducing tamsulosin to 0.4 mg and switching from metoprolol succinate to tartrate. he reports he mostly feels okay appetite sleep all okay. Does feel a bit dizzy sometimes when he is standing up and moving around. [facility] Medical History (Updated 06/11/24 @ 15:42 by Maurice Khan MD) Prostatitis Recurrent urinary tract infection Incomplete emptying of bladder Nocturia History of urinary tract infection Secondhand smoke exposure History of tobacco use Benign prostatic hyperplasia with lower urinary tract symptoms History of depression PONV (postoperative nausea and vomiting) Coccyx disorder Panic attacks Anxiety Eczema Melanoma Diabetes CAD (coronary artery disease) HTN (hypertension) Hyperlipidemia Bronchitis GEOVANNY on CPAP Muscle weakness Numbness and tingling Surgical History History of back surgery Hx of laminectomy Hx of tonsillectomy Hx of heart artery stent (~2003) Family History Mother Cancer Father Coronary artery disease Social History marital status: household members: spouse Smoking Status: Never smoker alcohol intake: never caffeine: Yes Type(s) of exercise: none Meds Home Medications and Allergies Home Medications Medication Instructions Recorded Confirmed Type coenzyme Q10 100 mg capsule (Co 1 tab PO DAILY ##0 12/09/17 09/13/24 History Q-10) escitalopram oxalate 10 mg tablet 10 mg PO QAM ##0 12/09/17 09/13/24 History (Lexapro) insulin glargine 100 unit/mL (3 80 units SUBCUT BEDTIME ##0 12/09/17 09/13/24 History mL) subcutaneous pen (Lantus Solostar U-100 Insulin) metformin 1,000 mg tablet,extended 1,000 mg PO BID ##0 12/09/17 09/13/24 History release 24hr (osmotic) (Fortamet) metoprolol succinate 50 mg 25 mg PO QAM ##0 12/09/17 09/13/24 History tablet,extended release 24 hr (Toprol XL) multivitamin (Multiple Vitamins 1 tab PO DAILY ##0 12/09/17 09/13/24 History tablet) clopidogrel 75 mg tablet 75 mg PO DAILY 03/07/24 09/13/24 History aspirin 325 mg tablet 325 mg PO DAILY 09/13/24 09/13/24 History ramipril 2.5 mg capsule 2.5 mg PO DAILY 09/13/24 09/13/24 History rosuvastatin 40 mg tablet 40 mg PO DAILY 09/13/24 09/13/24 History semaglutide 2 mg/dose (8 mg/3 mL) 2 mg SUBCUT QWEEK 09/13/24 09/13/24 History subcutaneous pen injector (Ozempic) tadalafil 5 mg tablet (Cialis) 5 mg PO DAILY #90 tabs 10/10/24 Rx tamsulosin 0.4 mg capsule 0.8 mg (2 x 0.4 mg) PO DAILY #180 10/10/24 Rx caps tadalafil 2.5 mg tablet 2.5 mg PO DAILY #90 tabs 01/16/25 Rx Allergies Allergy/AdvReac Type Severity Reaction Status Date / Time hydromorphone [From Dilaudid] Allergy Intermediate Rash Verified 07/03/24 14:33 Review of Systems Review of Systems Narrative: All systems reviewed and negative except as otherwise documented in HPI Exam Vital Signs (past 8 hours): - 02/06/25 12:30 02/06/25 12:30 02/06/25 12:41 Temperature 96.3 F L Pulse Rate 90 85 Pulse Rate [Orthostatic Lying] Pulse Rate [Orthostatic Sitting] Pulse Rate [Orthostatic Standing] Respiratory Rate 18 16 Blood Pressure 173/111 H 141/67 H Blood Pressure [Orthostatic Lying] Blood Pressure [Orthostatic Sitting] Blood Pressure [Orthostatic Standing] Pulse Oximetry 98 96 Oxygen Delivery Method Room Air 02/06/25 12:41 02/06/25 12:50 02/06/25 12:50 Temperature Pulse Rate 83 84 Pulse Rate [Orthostatic Lying] Pulse Rate [Orthostatic Sitting] Pulse Rate [Orthostatic Standing] Respiratory Rate 24 20 Blood Pressure 142/69 H Blood Pressure [Orthostatic Lying] Blood Pressure [Orthostatic Sitting] Blood Pressure [Orthostatic Standing] Pulse Oximetry 98 98 Oxygen Delivery Method 02/06/25 13:00 02/06/25 13:00 02/06/25 13:11 Temperature Pulse Rate 84 Pulse Rate [Orthostatic Lying] Pulse Rate [Orthostatic Sitting] Pulse Rate [Orthostatic Standing] Respiratory Rate 15 Blood Pressure 149/71 H 138/79 Blood Pressure [Orthostatic Lying] Blood Pressure [Orthostatic Sitting] Blood Pressure [Orthostatic Standing] Pulse Oximetry 96 Oxygen Delivery Method 02/06/25 13:11 02/06/25 13:20 02/06/25 13:20 Temperature Pulse Rate 91 H 84 Pulse Rate [Orthostatic Lying] Pulse Rate [Orthostatic Sitting] Pulse Rate [Orthostatic Standing] Respiratory Rate 22 14 Blood Pressure 145/74 H Blood Pressure [Orthostatic Lying] Blood Pressure [Orthostatic Sitting] Blood Pressure [Orthostatic Standing] Pulse Oximetry 96 97 Oxygen Delivery Method 02/06/25 13:33 02/06/25 13:34 02/06/25 13:34 Temperature Pulse Rate 89 86 Pulse Rate [Orthostatic Lying] Pulse Rate [Orthostatic Sitting] Pulse Rate [Orthostatic Standing] Respiratory Rate 16 Blood Pressure 145/76 H Blood Pressure [Orthostatic Lying] Blood Pressure [Orthostatic Sitting] Blood Pressure [Orthostatic Standing] Pulse Oximetry 97 95 Oxygen Delivery Method 02/06/25 13:40 02/06/25 13:40 02/06/25 13:50 Temperature Pulse Rate 85 86 Pulse Rate [Orthostatic Lying] Pulse Rate [Orthostatic Sitting] Pulse Rate [Orthostatic Standing] Respiratory Rate 15 15 Blood Pressure 140/71 Blood Pressure [Orthostatic Lying] Blood Pressure [Orthostatic Sitting] Blood Pressure [Orthostatic Standing] Pulse Oximetry 97 96 Oxygen Delivery Method 02/06/25 13:50 02/06/25 14:00 02/06/25 14:00 Temperature Pulse Rate 87 Pulse Rate [Orthostatic Lying] Pulse Rate [Orthostatic Sitting] Pulse Rate [Orthostatic Standing] Respiratory Rate 17 Blood Pressure 145/73 H 144/74 H Blood Pressure [Orthostatic Lying] Blood Pressure [Orthostatic Sitting] Blood Pressure [Orthostatic Standing] Pulse Oximetry 96 Oxygen Delivery Method 02/06/25 14:10 02/06/25 14:10 02/06/25 14:20 Temperature Pulse Rate 87 86 Pulse Rate [Orthostatic Lying] Pulse Rate [Orthostatic Sitting] Pulse Rate [Orthostatic Standing] Respiratory Rate 18 13 Blood Pressure 143/75 H Blood Pressure [Orthostatic Lying] Blood Pressure [Orthostatic Sitting] Blood Pressure [Orthostatic Standing] Pulse Oximetry 96 96 Oxygen Delivery Method 02/06/25 14:20 02/06/25 14:30 02/06/25 14:30 Temperature Pulse Rate 88 Pulse Rate [Orthostatic Lying] Pulse Rate [Orthostatic Sitting] Pulse Rate [Orthostatic Standing] Respiratory Rate 14 Blood Pressure 145/77 H 148/76 H Blood Pressure [Orthostatic Lying] Blood Pressure [Orthostatic Sitting] Blood Pressure [Orthostatic Standing] Pulse Oximetry 96 Oxygen Delivery Method 02/06/25 14:40 02/06/25 14:40 02/06/25 14:50 Temperature Pulse Rate 89 Pulse Rate [Orthostatic Lying] Pulse Rate [Orthostatic Sitting] Pulse Rate [Orthostatic Standing] Respiratory Rate 16 Blood Pressure 138/68 145/70 H Blood Pressure [Orthostatic Lying] Blood Pressure [Orthostatic Sitting] Blood Pressure [Orthostatic Standing] Pulse Oximetry 96 Oxygen Delivery Method 02/06/25 14:50 02/06/25 14:56 02/06/25 14:56 Temperature Pulse Rate 91 H 97 H Pulse Rate [Orthostatic Lying] Pulse Rate [Orthostatic Sitting] Pulse Rate [Orthostatic Standing] Respiratory Rate 19 19 Blood Pressure 135/67 Blood Pressure [Orthostatic Lying] Blood Pressure [Orthostatic Sitting] Blood Pressure [Orthostatic Standing] Pulse Oximetry 95 98 Oxygen Delivery Method 02/06/25 14:58 02/06/25 14:58 02/06/25 15:00 Temperature Pulse Rate 99 H 106 H Pulse Rate [Orthostatic Lying] Pulse Rate [Orthostatic Sitting] Pulse Rate [Orthostatic Standing] Respiratory Rate 16 26 H Blood Pressure 131/63 Blood Pressure [Orthostatic Lying] Blood Pressure [Orthostatic Sitting] Blood Pressure [Orthostatic Standing] Pulse Oximetry 95 96 Oxygen Delivery Method 02/06/25 15:00 02/06/25 15:09 02/06/25 15:09 Temperature Pulse Rate 96 H Pulse Rate [Orthostatic Lying] Pulse Rate [Orthostatic Sitting] Pulse Rate [Orthostatic Standing] Respiratory Rate 21 Blood Pressure 91/44 L 144/75 H Blood Pressure [Orthostatic Lying] Blood Pressure [Orthostatic Sitting] Blood Pressure [Orthostatic Standing] Pulse Oximetry 93 Oxygen Delivery Method 02/06/25 15:11 02/06/25 15:30 02/06/25 16:00 Temperature Pulse Rate 99 H 92 H Pulse Rate [Orthostatic Lying] 91 H Pulse Rate [Orthostatic Sitting] 97 H Pulse Rate [Orthostatic Standing] 106 H Respiratory Rate 19 16 Blood Pressure Blood Pressure [Orthostatic Lying] 145/70 H Blood Pressure [Orthostatic Sitting] 135/67 Blood Pressure [Orthostatic Standing] 91/44 L Pulse Oximetry 99 96 Oxygen Delivery Method 02/06/25 16:30 Temperature Pulse Rate 94 H Pulse Rate [Orthostatic Lying] Pulse Rate [Orthostatic Sitting] Pulse Rate [Orthostatic Standing] Respiratory Rate 16 Blood Pressure Blood Pressure [Orthostatic Lying] Blood Pressure [Orthostatic Sitting] Blood Pressure [Orthostatic Standing] Pulse Oximetry 91 Oxygen Delivery Method Oxygen Delivery Method Room Air Chest Other: well-healing midline thoracic incision Resp Other: clear to auscultation bilaterally Cardio Other: regular rate S1-S2 no pedal edema noted GI Other: soft nontender nondistended active bowel sounds Neuro Other: alert awake oriented moving all limbs Objective Labs 02/06/25 12:26 02/06/25 12:26 Labs: Laboratory Results - last 24 hr 02/06/25 12:26 WBC 6.9 RBC 4.12 L Hgb 12.5 L Hct 36.8 L MCV 89.3 MCH 30.3 MCHC 33.9 RDW 13.3 Plt Count 204 Neut % (Auto) 59.8 Lymph % (Auto) 26.4 [place] % (Auto) 10.8 Eos % (Auto) 2.7 Baso % (Auto) 0.3 Neut # (Auto) 4200 Lymph # (Auto) 1800 [place] # (Auto) 700 Eos # (Auto) 200 Baso # (Auto) 0 PT 15.3 H INR 1.4 H APTT 34 Sodium 140 Potassium 3.9 Chloride 105 Carbon Dioxide 22 BUN 14 Creatinine 1.02 Estimated GFR > 60 BUN/Creatinine Ratio 13.7 Glucose 122 H Calcium 10.2 Magnesium 1.7 Total Bilirubin 0.7 AST 35 ALT 28 Alkaline Phosphatase 67 Total Creatine Kinase 63 Troponin I < 0.012 NT-Pro-B Natriuret Pep 82 Total Protein 7.1 Albumin 4.6 Globulin 2.5 Albumin/Globulin Ratio 1.8 Lipase 333 H Assessment & Plan Assessment & Plan narrative: #orthostatic hypotension #primary hypertension Marked response to standing - per conversation with cardiology will modify meds . Stop tadalafil and ramipril switch metoprolol succinate to tartrate and reduced tamsulosin to 0.4 mg dose. Continue personnel monitor. Ambulate with assistance only. 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 Stop tadalafil and cut tamsulosin dose to 0.4. Dispo: Admit obsv and monitor BP with med changes Code: full Diet: diabetic MDM: Asha [phone] Time-Based Coding :: [TOTAL MINUTES] spent with patient and on the chart (including review of chart, obtaining history, exam, reviewing outside data, placing orders, documenting exam and treatment plan, and counseling patient) on [DATE].
[2025-02-06] MEDS: ACETAMINOPHEN 325 MG TABLET 650 MG PO (18:55)
--- NOTE | 2025-02-06 19:28 | ED.SYNCOPE ---
HPI - Syncope General Chief Complaint: Syncope Stated Complaint: hypotension s/p CABG 10 wks Time Seen by Provider: 02/06/25 13:41 Source: patient and EMS Mode of arrival: EMS Limitations: no limitations History of Present Illness HPI narrative: This 69-year-old male presents to the emergency room accompanied by his with a history that he underwent a CABG 10 weeks ago and since that time has had fairly regular orthostatic hypotension in the mornings and hypertension in the evenings. He is currently being managed on a combination of metoprolol succinate daily and ramipril as well as tadalafil and tamsulosin. He had no severe decrease in his hematocrit following surgery. Today the patient was working out in his garage managed run into his garage door with his head. He was syncopal briefly and ended up on the ground. He also was acutely weak when he tried to stand upright from a chair earlier in the morning. His is very worried that he will continue to fall unless his situation is corrected. Related Data Home Medications Medication Instructions Recorded Confirmed coenzyme Q10 100 mg capsule (Co 1 tab PO DAILY ##0 12/09/17 09/13/24 Q-10) escitalopram oxalate 10 mg tablet 10 mg PO QAM ##0 12/09/17 09/13/24 (Lexapro) insulin glargine 100 unit/mL (3 80 units SUBCUT BEDTIME ##0 12/09/17 09/13/24 mL) subcutaneous pen (Lantus Solostar U-100 Insulin) metformin 1,000 mg tablet,extended 1,000 mg PO BID ##0 12/09/17 09/13/24 release 24hr (osmotic) (Fortamet) metoprolol succinate 50 mg 25 mg PO QAM ##0 12/09/17 09/13/24 tablet,extended release 24 hr (Toprol XL) multivitamin (Multiple Vitamins 1 tab PO DAILY ##0 12/09/17 09/13/24 tablet) clopidogrel 75 mg tablet 75 mg PO DAILY 03/07/24 09/13/24 aspirin 325 mg tablet 325 mg PO DAILY 09/13/24 09/13/24 ramipril 2.5 mg capsule 2.5 mg PO DAILY 09/13/24 09/13/24 rosuvastatin 40 mg tablet 40 mg PO DAILY 09/13/24 09/13/24 semaglutide 2 mg/dose (8 mg/3 mL) 2 mg SUBCUT QWEEK 09/13/24 09/13/24 subcutaneous pen injector (Ozempic) Previous Rx's Medication Instructions Recorded tadalafil 5 mg tablet (Cialis) 5 mg PO DAILY #90 tabs 10/10/24 tamsulosin 0.4 mg capsule 0.8 mg (2 x 0.4 mg) PO DAILY #180 10/10/24 caps tadalafil 2.5 mg tablet 2.5 mg PO DAILY #90 tabs 01/16/25 Allergies Allergy/AdvReac Type Severity Reaction Status Date / Time hydromorphone [From Dilaudid] Allergy Intermediate Rash Verified 07/03/24 14:33 Review of Systems Review of Systems Narrative: Review of systems reveals constitutional-malaise secondary to when upright and discovered to have low blood pressure HEENT-negative neck negative chest negative cardiovascular-low blood pressure when upright abdomen-no pain reported extremities negative for edema or calf pain neurologic-patient is near syncopal when sitting upright or standing upright in the morning. All other systems are negative on review of systems Patient History Medical History (Updated 02/06/25 @ 19:03 by Sarai Malone MD) Prostatitis Recurrent urinary tract infection Incomplete emptying of bladder Nocturia History of urinary tract infection Secondhand smoke exposure History of tobacco use Benign prostatic hyperplasia with lower urinary tract symptoms History of depression PONV (postoperative nausea and vomiting) Coccyx disorder Panic attacks Anxiety Eczema Melanoma Diabetes CAD (coronary artery disease) HTN (hypertension) Hyperlipidemia Bronchitis GEOVANNY on CPAP Muscle weakness Numbness and tingling Surgical History History of back surgery Hx of laminectomy Hx of tonsillectomy Hx of heart artery stent (~2003) Family History Mother Cancer Father Coronary artery disease Social History marital status: household members: spouse alcohol intake: never caffeine: Yes Type(s) of exercise: none Smoking Status: Never smoker Exam Initial Vital Signs Initial Vital Signs: Vital Signs Temperature 96.3 F L 02/06/25 12:30 Pulse Rate 90 02/06/25 12:30 Respiratory Rate 18 02/06/25 12:30 Blood Pressure 173/111 H 02/06/25 12:30 Pulse Oximetry 98 02/06/25 12:30 Oxygen Delivery Method Room Air 02/06/25 12:30 Const General: cooperative Other: Tired appearing HENMT HENMT Other: Atraumatic slightly pale Eyes Other: PERRL. EOMs are full. Neck Other: Normal range of motion, no stridor, no bruits Chest Other: Clear breath sounds Cardio Other: Regular rhythm without murmur GI Other: No tenderness, Other: Negative Neuro Other: Oriented x3 cranial nerves 2-7 intact, strength, sensation-4/5 strength throughout sensation intact. Extrem Other: Normal range of motion, no calf tenderness, 1+ edema nonpitting Course Course Course Narrative: This 69-year-old male presents approximately 10 weeks post CABG with the history that he has low blood pressure less than 100 systolic in the mornings and high blood pressure in the evenings. This has been going on since his surgery. He is on a number of medications post surgery including metoprolol succinate once a day, ramipril daily, tadalafil 2.5 mg daily, and tamsulosin 0.8 mg daily. it is felt that his medicines may be at the base of his symptoms. He is indeed orthostatic as he went from being more hypertensive supine with the lower poles to a blood pressure less than 100 systolic when he was upright with a slightly tachycardic pulse of 106. Lab revealed a normal WBC, a normal troponin, but he did have an elevated lipase of 333. EKG revealed a sinus rhythm rate 85, left axis deviation, no acute ST T wave changes. Consultation was made with the patient's cardiology group with [facility] and the suggested that his medicines be changed as follows DC his metoprolol succinate and start metoprolol tartrate 25 mg b.i.d., DC his ramipril and tadalafil for present, and reduce the dose of his tamsulosin to 0.4 mg daily. They felt that would level out his blood pressure. They felt he could be admitted to a hospital without cardiology at this time. Therefore the hospitalist on-call Dr. Arriaga see admitted him to medicine for adjustment of his list of medications. Orders Ordered: ED Orders 02/06/25 12:26 Complete Blood Count AUTO DIFF Stat Comprehensive Metabolic Panel Stat Lipase Stat Magnesium Stat NT-proBNP (BNP-Adult 18+) Stat PTT Partial Thromboplastin Sachin Stat Prothrombin Time INR Stat Troponin & CK Cardiac Panel Stat 02/06/25 12:37 XR chest 1V Stat EKG-12 Lead Stat 02/06/25 13:03 CT head/brain wo con Stat 02/06/25 13:04 CT cervical spine wo con Stat Acetaminophen (Acetaminophen 325 Mg Tablet) 650 mg PO Q6H PRN PRN Reason: Fever/Mild Pain (1-3) Last Admin: 02/06/25 18:55 Dose: 650 mg Documented By: MAVERICK Hydrocodone Bitart/Acetaminophen (Hydrocodone/Acet 5/325 Tablet) 1 tab PO Q4H PRN PRN Reason: Pain, Moderate (4-6) Apixaban (Apixaban 5 Mg Tablet) 5 mg PO BID [facility] Aspirin (Aspirin Ec 81 Mg Tablet) 81 mg PO DAILY [facility] Escitalopram Oxalate (Escitalopram 10 Mg Tablet) 10 mg PO DAILY [facility] Dextrose (D10w) 100 mls @ 999 mls/hr IV PRN PRN PRN Reason: Hypoglycemia Insulin Glargine (Insulin Glargine 100 Unit/Ml 3ml Pen) 50 unit SUBCUT BEDTIME [facility] Insulin Human Lispro (Insulin Lispro 100 Unit/Ml 3ml Vial) 0 unit SUBCUT ACHS DANIEL; Protocol Metoprolol Tartrate (Metoprolol Ir 25 Mg Tablet) 25 mg PO BID [facility] Naloxone HCl (Naloxone 0.4 Mg/Ml Vial) 0.2 mg IV Q2MIN PRN PRN Reason: Opiate Reversal Non-Formulary Medication (Rosuvastatin) 40 mg PO DAILY [facility] Ondansetron HCl (Ondansetron 4 Mg Odt) 4 mg PO Q8HR PRN PRN Reason: Nausea And Vomiting Tamsulosin HCl (Tamsulosin 0.4 Mg Capsule) 0.4 mg PO DAILY [facility] Discontinued Medications Enoxaparin Sodium (Enoxaparin 40 Mg/0.4 Ml Syringe) 40 mg SUBCUT DAILY [facility] Vital Signs Vital signs: Vital Signs - 8 hr 02/06/25 12:30 02/06/25 12:30 02/06/25 12:41 Temperature 96.3 F L Pulse Rate 90 85 Pulse Rate [Orthostatic Lying] Pulse Rate [Orthostatic Sitting] Pulse Rate [Orthostatic Standing] Respiratory Rate 18 16 Blood Pressure 173/111 H 141/67 H Blood Pressure [Orthostatic Lying] Blood Pressure [Orthostatic Sitting] Blood Pressure [Orthostatic Standing] Pulse Oximetry 98 96 Oxygen Delivery Method Room Air 02/06/25 12:41 02/06/25 12:50 02/06/25 12:50 Temperature Pulse Rate 83 84 Pulse Rate [Orthostatic Lying] Pulse Rate [Orthostatic Sitting] Pulse Rate [Orthostatic Standing] Respiratory Rate 24 20 Blood Pressure 142/69 H Blood Pressure [Orthostatic Lying] Blood Pressure [Orthostatic Sitting] Blood Pressure [Orthostatic Standing] Pulse Oximetry 98 98 Oxygen Delivery Method 02/06/25 13:00 02/06/25 13:00 02/06/25 13:11 Temperature Pulse Rate 84 Pulse Rate [Orthostatic Lying] Pulse Rate [Orthostatic Sitting] Pulse Rate [Orthostatic Standing] Respiratory Rate 15 Blood Pressure 149/71 H 138/79 Blood Pressure [Orthostatic Lying] Blood Pressure [Orthostatic Sitting] Blood Pressure [Orthostatic Standing] Pulse Oximetry 96 Oxygen Delivery Method 02/06/25 13:11 02/06/25 13:20 02/06/25 13:20 Temperature Pulse Rate 91 H 84 Pulse Rate [Orthostatic Lying] Pulse Rate [Orthostatic Sitting] Pulse Rate [Orthostatic Standing] Respiratory Rate 22 14 Blood Pressure 145/74 H Blood Pressure [Orthostatic Lying] Blood Pressure [Orthostatic Sitting] Blood Pressure [Orthostatic Standing] Pulse Oximetry 96 97 Oxygen Delivery Method 02/06/25 13:33 02/06/25 13:34 02/06/25 13:34 Temperature Pulse Rate 89 86 Pulse Rate [Orthostatic Lying] Pulse Rate [Orthostatic Sitting] Pulse Rate [Orthostatic Standing] Respiratory Rate 16 Blood Pressure 145/76 H Blood Pressure [Orthostatic Lying] Blood Pressure [Orthostatic Sitting] Blood Pressure [Orthostatic Standing] Pulse Oximetry 97 95 Oxygen Delivery Method 02/06/25 13:40 02/06/25 13:40 02/06/25 13:50 Temperature Pulse Rate 85 86 Pulse Rate [Orthostatic Lying] Pulse Rate [Orthostatic Sitting] Pulse Rate [Orthostatic Standing] Respiratory Rate 15 15 Blood Pressure 140/71 Blood Pressure [Orthostatic Lying] Blood Pressure [Orthostatic Sitting] Blood Pressure [Orthostatic Standing] Pulse Oximetry 97 96 Oxygen Delivery Method 02/06/25 13:50 02/06/25 14:00 02/06/25 14:00 Temperature Pulse Rate 87 Pulse Rate [Orthostatic Lying] Pulse Rate [Orthostatic Sitting] Pulse Rate [Orthostatic Standing] Respiratory Rate 17 Blood Pressure 145/73 H 144/74 H Blood Pressure [Orthostatic Lying] Blood Pressure [Orthostatic Sitting] Blood Pressure [Orthostatic Standing] Pulse Oximetry 96 Oxygen Delivery Method 02/06/25 14:10 02/06/25 14:10 02/06/25 14:20 Temperature Pulse Rate 87 86 Pulse Rate [Orthostatic Lying] Pulse Rate [Orthostatic Sitting] Pulse Rate [Orthostatic Standing] Respiratory Rate 18 13 Blood Pressure 143/75 H Blood Pressure [Orthostatic Lying] Blood Pressure [Orthostatic Sitting] Blood Pressure [Orthostatic Standing] Pulse Oximetry 96 96 Oxygen Delivery Method 02/06/25 14:20 02/06/25 14:30 02/06/25 14:30 Temperature Pulse Rate 88 Pulse Rate [Orthostatic Lying] Pulse Rate [Orthostatic Sitting] Pulse Rate [Orthostatic Standing] Respiratory Rate 14 Blood Pressure 145/77 H 148/76 H Blood Pressure [Orthostatic Lying] Blood Pressure [Orthostatic Sitting] Blood Pressure [Orthostatic Standing] Pulse Oximetry 96 Oxygen Delivery Method 02/06/25 14:40 02/06/25 14:40 02/06/25 14:50 Temperature Pulse Rate 89 Pulse Rate [Orthostatic Lying] Pulse Rate [Orthostatic Sitting] Pulse Rate [Orthostatic Standing] Respiratory Rate 16 Blood Pressure 138/68 145/70 H Blood Pressure [Orthostatic Lying] Blood Pressure [Orthostatic Sitting] Blood Pressure [Orthostatic Standing] Pulse Oximetry 96 Oxygen Delivery Method 02/06/25 14:50 02/06/25 14:56 02/06/25 14:56 Temperature Pulse Rate 91 H 97 H Pulse Rate [Orthostatic Lying] Pulse Rate [Orthostatic Sitting] Pulse Rate [Orthostatic Standing] Respiratory Rate 19 19 Blood Pressure 135/67 Blood Pressure [Orthostatic Lying] Blood Pressure [Orthostatic Sitting] Blood Pressure [Orthostatic Standing] Pulse Oximetry 95 98 Oxygen Delivery Method 02/06/25 14:58 02/06/25 14:58 02/06/25 15:00 Temperature Pulse Rate 99 H 106 H Pulse Rate [Orthostatic Lying] Pulse Rate [Orthostatic Sitting] Pulse Rate [Orthostatic Standing] Respiratory Rate 16 26 H Blood Pressure 131/63 Blood Pressure [Orthostatic Lying] Blood Pressure [Orthostatic Sitting] Blood Pressure [Orthostatic Standing] Pulse Oximetry 95 96 Oxygen Delivery Method 02/06/25 15:00 02/06/25 15:09 02/06/25 15:09 Temperature Pulse Rate 96 H Pulse Rate [Orthostatic Lying] Pulse Rate [Orthostatic Sitting] Pulse Rate [Orthostatic Standing] Respiratory Rate 21 Blood Pressure 91/44 L 144/75 H Blood Pressure [Orthostatic Lying] Blood Pressure [Orthostatic Sitting] Blood Pressure [Orthostatic Standing] Pulse Oximetry 93 Oxygen Delivery Method 02/06/25 15:11 02/06/25 15:30 02/06/25 16:00 Temperature Pulse Rate 99 H 92 H Pulse Rate [Orthostatic Lying] 91 H Pulse Rate [Orthostatic Sitting] 97 H Pulse Rate [Orthostatic Standing] 106 H Respiratory Rate 19 16 Blood Pressure Blood Pressure [Orthostatic Lying] 145/70 H Blood Pressure [Orthostatic Sitting] 135/67 Blood Pressure [Orthostatic Standing] 91/44 L Pulse Oximetry 99 96 Oxygen Delivery Method 02/06/25 16:30 Temperature Pulse Rate 94 H Pulse Rate [Orthostatic Lying] Pulse Rate [Orthostatic Sitting] Pulse Rate [Orthostatic Standing] Respiratory Rate 16 Blood Pressure Blood Pressure [Orthostatic Lying] Blood Pressure [Orthostatic Sitting] Blood Pressure [Orthostatic Standing] Pulse Oximetry 91 Oxygen Delivery Method MDM - Syncope Medical Records Attestation: I reviewed the patient's medical records. Medical records narrative: Differential for the patient's presentation includes medication effect versus cardiac injury versus infection versus postop issue i.e. anemia. After workup above, please refer to lab and EKGand cxr which was negative and ct head-negative and ct cervical spine were all negative. It would appear from evaluating the patient's workup that the cause of the patient's orthostatic hypotension presentation is most likely medication effect. Lab Data 02/06/25 12:26 02/06/25 12:26 Labs: Lab Results 02/06/25 Range/Units 12:26 WBC 6.9 (4.5-11.0) X10^3/uL RBC 4.12 L (4.5-5.9) X10^6/uL Hgb 12.5 L (13.5-17.5) g/dL Hct 36.8 L (41-53) % MCV 89.3 (80-100) fL MCH 30.3 (26-34) PG MCHC 33.9 (30-36) % RDW 13.3 (11.6-14.8) % Plt Count 204 (150-400) X10^3/uL Neut % (Auto) 59.8 (50-75) % Lymph % (Auto) 26.4 (25-40) % Harney % (Auto) 10.8 (3-14) % Eos % (Auto) 2.7 (2-4) % Baso % (Auto) 0.3 (0-2) % Neut # (Auto) 4200 (1184-0823) /uL Lymph # (Auto) 1800 (5439-5905) /uL Harney # (Auto) 700 (0-900) /uL Eos # (Auto) 200 (0-450) /uL Baso # (Auto) 0 (0-100) /uL PT 15.3 H (9.4-12.5) SECONDS INR 1.4 H (0.9-1.3) APTT 34 (25.1-36.5) SECONDS Sodium 140 (137-145) mmol/L Potassium 3.9 (3.4-5.1) mmol/L Chloride 105 (98-107) mmol/L Carbon Dioxide 22 (22-32) mmol/L BUN 14 (9-20) mg/dL Creatinine 1.02 (0.66-1.25) mg/dL Estimated GFR > 60 (>60) mL/min BUN/Creatinine Ratio 13.7 (6-22) Glucose 122 H (70-99) mg/dL Calcium 10.2 (8.4-10.2) mg/dL Magnesium 1.7 (1.6-2.3) mg/dL Total Bilirubin 0.7 (0.2-1.3) mg/dL AST 35 (17-59) IU/L ALT 28 (<50) IU/L Alkaline Phosphatase 67 (38-126) U/L Total Creatine Kinase 63 (55-170) U/L Troponin I < 0.012 (0.01-0.034) ng/mL NT-Pro-B Natriuret Pep 82 (<125) pg/mL Total Protein 7.1 (6.3-8.2) g/dL Albumin 4.6 (3.5-5.0) g/dL Globulin 2.5 (1.7-4.1) g/dL Albumin/Globulin Ratio 1.8 (1.0-2.8) Lipase 333 H (23-300) U/L Point of Care Testing Glucose POC 106 Discharge Plan Departure Patient Disposition: Admitted as Observation Clinical Impression: Orthostatic hypotension Admit Date/Time: 02/06/25 16:45 Admit Provider: Charles Dyson
--- NOTE | 2025-02-06 20:15 | PC.NURSE ---
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 and again at 0300 if needed. Charge aware.
[2025-02-06] MEDS: METOPROLOL IR 25 MG TABLET PO (20:20)
[2025-02-06] MEDS: APIXABAN 5 MG TABLET PO (20:20)
[2025-02-06] MEDS: HYDROCODONE/ACET 5/325 TABLET 1 TAB PO (20:23)
[2025-02-07] VITALS: BP 144/86; PULSE 86; RESP 19; TEMP 37.1; O2SAT 98
[2025-02-07] MEDS: HYDROCODONE/ACET 5/325 TABLET 1 TAB PO ×4 (00:49→15:13)
[2025-02-07 04:00] VITALS: BP 144/89; PULSE 86; RESP 19; TEMP 37; O2SAT 96
[2025-02-07 04:50] LABS: Add Manual Diff / Slide Review NO; Basophils Absolute Auto 0 /uL (0-100); Basophils Percent Auto 0.6 % (0-2); Eosinophils Absolute Auto 200 /uL (0-450); Eosinophils Percent Auto 2.3 % (2-4); Hematocrit 33.3 % (41-53); Hemoglobin 11.4 g/dL (13.5-17.5); Lymphocytes Absolute Auto 1500 /uL (1100-4500); Lymphocytes Percent Auto 20.4 % (25-40); Mean Corpuscular HGB Conc 34.1 % (30-36); Mean Corpuscular Hemoglobin 30.5 PG (26-34); Mean Corpuscular Volume 89.5 fL (80-100); Monocytes Absolute Auto 900 /uL (0-900); Monocytes Percent Auto 12.3 % (3-14); Neutrophils Absolute Auto 4900 /uL (1500-7000); Neutrophils Percent Auto 64.4 % (50-75); Platelet Count 184 X10^3/uL (150-400); Red Blood Cell Count 3.72 X10^6/uL (4.5-5.9); Red Cell Distribution Width 13.6 % (11.6-14.8); White Blood Cell Count 7.5 X10^3/uL (4.5-11.0)
[2025-02-07 04:59] LABS: Alanine Aminotransferase 22 IU/L (<50); Albumin Globulin Ratio 1.7 (1.0-2.8); Alkaline Phosphatase 50 U/L (38-126); Aspartate Aminotransferase 30 IU/L (17-59); Bilirubin Total 0.5 mg/dL (0.2-1.3); Blood Urea Nitrogen 13 mg/dL (9-20); Calcium 9.2 mg/dL (8.4-10.2); Carbon Dioxide 32 mmol/L (22-32); Chloride 104 mmol/L (98-107); Estimated Glomerular Filt Rate > 60 mL/min (>60); Globulin 2.4 g/dL (1.7-4.1); Glucose 90 mg/dL (70-99); HEMOLYSIS < 15 (0-50); Sodium 142 mmol/L (137-145); Total Protein 6.4 g/dL (6.3-8.2)
[2025-02-07 08:00] VITALS: BP 148/76; PULSE 82; RESP 16; TEMP 36.5; O2SAT 97
[2025-02-07] MEDS: METOPROLOL IR 25 MG TABLET PO ×2 (09:24→20:25)
[2025-02-07] MEDS: APIXABAN 5 MG TABLET PO (10:45)
--- NOTE | 2025-02-07 11:32 | DI.RAD.S_ITS ---
PROCEDURE: XR KNEE LT 1TO2V INDICATIONS: pain after fall TECHNIQUE: 2 views of the knee were acquired. COMPARISON: None. FINDINGS: Bones: No acute fractures or dislocations. No suspicious bony lesions. Soft tissues: Small joint effusion. Atherosclerotic vascular calcifications are present. IMPRESSION: Small joint effusion. No acute osseous abnormality. If there is continued clinical concern or persistent symptoms, repeat radiographs or cross-sectional imaging (e.g. CT, MRI) may be helpful for further evaluation. Approved by: Bryson Brown M.D. on 02/07/2025 at 12:22
[2025-02-07 12:00] VITALS: BP 137/75; PULSE 76; RESP 16; TEMP 36.2; O2SAT 95
--- NOTE | 2025-02-07 12:20 | PT-IP ANOTE ---
checked on pt this morning and stated that the doctor ordered an x-ray for his L knee due to pain s/p fall. informed nurse. checked back on pt again and nuclear reactor technician in to do xray on pt. will await xray result prior to PT eval.
--- NOTE | 2025-02-07 13:10 | PT.IIE ---
Surgical History (Last Reviewed 03/13/24 @ 13:12 by Maurice Khan MD) History of back surgery Hx of heart artery stent (~2003) Hx of laminectomy Hx of tonsillectomy Medical History Anxiety Benign prostatic hyperplasia with lower urinary tract symptoms Bronchitis CAD (coronary artery disease) Coccyx disorder Diabetes Eczema History of depression History of tobacco use History of urinary tract infection HTN (hypertension) Hyperlipidemia Incomplete emptying of bladder Melanoma Muscle weakness Nocturia Numbness and tingling GEOVANNY on CPAP Panic attacks PONV (postoperative nausea and vomiting) Prostatitis Recurrent urinary tract infection Secondhand smoke exposure Physical Therapy Inpatient Evaluation/Re-Eval M1 PT/OT-IP Prior Functional Status Start: 02/07/25 16:51 Freq: NEEDED Status: Active Protocol: Document 02/07/25 13:10 AB (Rec: 02/07/25 17:07 AB [id number]) Medical Review Prior Functional Status Medical History Reviewed Yes Communication able to make needs known Mobility and Gait pt stated that he was independent with all mobilities and ambulation without AD Activities of Daily Living and IADL's Able to do all ADL and IADL needs and gong to cardio rehab . However only going 1/week due to hypotension. Social History Household Members spouse Living Arrangements House Number of Floors (Floors) 3 or More Floors Number of Stairs To Enter/Railing? Pt has an elevator to use in his house; no steps to enter the house Home Environment High Toilet,Walk in Shower Home Equipment Four Wheel Walker,Raised Toilet Seat w/Armrests,Shower Seat with Backrest,Hand Held Shower,Print Line Inspector,Grab Bars In Shower Additional Social History Comment Pt has an adjustable bed. M2 PT-IP Current Condition Start: 02/07/25 16:51 Freq: NEEDED Status: Active Protocol: Document 02/07/25 13:10 AB (Rec: 02/07/25 17:07 AB [id number]) Physical Therapy Current Condition Current Condition Evaluation Date 02/07/25 Treatment Diagnosis s/p fall; orthostatic hypotension; difficulty in walking Onset Date 02/06/25 M3 PT-IP Subjective Start: 02/07/25 16:51 Freq: NEEDED Status: Active Protocol: Document 02/07/25 13:10 AB (Rec: 02/07/25 17:07 AB [id number]) Subjective Physical Therapy Visit Type Type Initial Evaluation Visit Start Time 13:10 Visit Stop Time 13:52 Notes L knee x-ray result , negative for fracture; has joint effusion Number of CASINO CASHIER MANAGER Visits 0 Physical Therapy Visit Comments Patient Comments agreeable to do PT Therapy Pain Assessment Pain When Pain Assessed During Mobility Pain Present Pain Present Pain Reported Location Left Knee Scale Used pain scale not stated Pain Behaviors Wincing Pain Management Techniques Apply Cold,Distraction, Modification of Treatment,Re- positioning M4 PT-IP Mobility and Gait Start: 02/07/25 16:51 Freq: NEEDED Status: Active Protocol: Document 02/07/25 13:10 AB (Rec: 02/07/25 17:07 AB [id number]) PT-Bed Mobility Assessment Supine to Sit Supine to Sit Standby Assistance PT-Transfer Assessment Sit to and From Stand Sit to and from Stand Minimal Assistance,1 Person Assistance,Use of Upper Extremities Equipment Transfer Assistive Device Gait Belt,Front Wheeled Walker Orthotic/Prosthetic Devices or Brace: No Transfers Transfer Destination Chair Transfer Technique ambulated Transfer Ability Level of Assist Moderate Assistance,Maximum Assistance,1 Person Assistance ,Use of Upper Extremities Comments Mobility Comments pt in bed and agreed to do PT. BP monitored. obtained PLOF and home set up. BP in supine: 124/69. completed supine to sit SBA. able to sit on EOB SBA. no c/o dizziness. BP: 116/71. pt sat for ~ 1-2 minutes and BP rechecked: 120/78. sit to stand min A. BP in standin/58. pt stayed standing for a few minutes and BP rechecked : 95/56. pt ambulated to the chair using fWW mod A and cues . unsteady antalgic gait. pt sat on EOB chair. BP checked: 104/65. pt agreed to walk again after resting. sit to stand from the chair min A and ambulated ~ 15 ft using FWW mod A to max A and cues. pt has to sit on EOB. increase unsteadiness with ambulation with (+) L knee giving out requiring max A . pt sat on EOB. BP: 108/66. pt agreed to get up again and walk to the chair. sit to stand from EOB min A and ambulated to the chair using fWW mod to max A and max cues. (+) L knee slight buckling needing max A . pt sat on the chair. positioned pt on the chair. BP checked: 98/60. call light and table placed within reach. Gait Assessment Gait Distance (Feet) 15 Able to Maintain Weight Bearing Status Yes During Gait Assistive Devices Assistive Device Gait Belt,Front Wheeled Walker Orthotic/Prosthetic Devices or Brace: No Gait Deviations General Gait Pattern Antalgic,Decreased Stride Length,Decreased Feet Clearance,Step-to Gait Factors Limiting Gait Function Factors Limiting Gait Function Abnormal Tonal Influences, Decreased Strength,Limited Range of Motion,Pain,Poor Balance,Poor Safety Awareness PT-Balance Assessment Sitting Balance and Reactions Static Sitting Balance Ability Good Dynamic Sitting Balance Ability Good Standing Balance and Reactions Static Standing Balance Ability Fair Dynamic Standing Balance Ability Poor Device Used FWW M5 PT-IP Objective Assessments Start: 02/07/25 16:51 Freq: NEEDED Status: Active Protocol: Document 02/07/25 13:10 AB (Rec: 02/07/25 17:07 AB [id number]) Orientation Orientation/Cognition Level of Alertness Alert Orientation Name,Place,Situation Language Function Ability No Deficits Noted Safety Awareness Decreased Safety Awareness Memory Description No Deficits Noted Gross Range of Motion Lower Extremity ROM Assessment Within Functional Limits Strength Lower Extremity Strength Assessment Left Impaired Hip 4-/5 Knee 3+/5 Comments Strength Comments LLE: pain limiting MMT Muscle Tone Muscle Tone WNL Yes M6 PT-IP Treatment Start: 02/07/25 16:51 Freq: NEEDED Status: Active Protocol: Document 02/07/25 13:10 AB (Rec: 02/07/25 17:07 AB [id number]) Physical Therapy Treatment Education Education Provided Safety M7 PT-IP Assessment and Plan Start: 02/07/25 16:51 Freq: NEEDED Status: Active Protocol: Document 02/07/25 13:10 AB (Rec: 02/07/25 17:07 AB [id number]) PT Summary Assessment and Plan Potential Rehabilitation Potential Fair Status of Condition at Evaluation Evolving Summary Impairments Pain,ROM,Strength,Balance, Coordination,Sensation,Tone, Cognition,Bed Mobility, Transfers,Gait,Activity Tolerance Assessment Summary pt is a 69 y/o M who has h/o CABG x 1 ~ 10 weeks ago. pt with episodes of orthostatic hypotension with syncopal episode s/p fall. Pt with c/o L knee pain due to the fall but is (+) for fractures on imaging. pt requiring mod to max A for ambulation using FWW with (+) L knee buckling and c/o pain. pt continues to have orthostatic hypotension with BPat 124/69 in supine to 93/58 in standing. d/c plan depending on progress but at this time, may require SNF rehab. will continue to assess . Goals Bed Mobility Goal Independent Transfer Goal Standby Assistance,Front Wheeled Walker Gait Goal Standby Assistance,Front Wheel Walker Gait Distance 100 Other Goals improve transfers, ambulation using LRAD/without AD ~ 200 ft mod I Days to Meet Goals 10 Frequency of Treatment Frequency Of Treatment Once a Day Treatment Plan Physical Therapy Treatment Plan Bed Mobility Training,Transfer Training,Gait Training, Therapeutic Exercise,Balance Retraining,Discharge Planning, Hot or Cold Pack,Neuromuscular Re-ed,Coordination Retraining ,Manual Therapy Precautions Other Precautions falls; BP Recommendations To Nursing Amount of Assist Needed 1 Person Assist Discharge Recommendations PT Discharge Recommendations SNF Rehab Equipment Needed for Home Before FWW Discharge Transportation Needs at Discharge Private Vehicle,Wheelchair/ Cabulance - PT assist 1
--- NOTE | 2025-02-07 13:51 | CM.DANOTE ---
Initial DCP Assessment Note Pt is a 69 yo male, resident of [place], 10 weeks out from a CABG, arrives with orthostatic hypotension. PCP: Jean Daniel Payer: TREVA/RENETTA Reviewed chart, pt discussed with Dr Dyson this morning; Patient may be able to discharge later today. Patient admitted OBS for medication management and close monitoring. Therapy has been ordered, reviewed PT note which indicates patient was off the floor today for an xray for his L knee s/p fall - review of these findings shows no acute fx or dislocation. Patient lives independently with sp, who can assist with ADLs as needed. Patient has walker and wc at home to use as needed. No barriers identified at this time to patient's safe discharge home w/family to assist; close outpatient f/u recommended. CM team will plan to follow clinical course closely in case any DC needs or concerns arise. LARA Regalado Discharge Planning/Care Management CM Discharge Assessment Start: 02/07/25 13:44 Freq: Status: Active Protocol: Document 02/07/25 13:45 ANGEL (Rec: 02/07/25 13:51 ANGEL [id number]) Discharge Planning Assessment Assigned Electrician Wiring LARA Upton DPOA/Assigned Designee Name Asha Sánchez, spouse Contact Information [phone], Advance Directives? No History Provided By Patient,Medical Record Has Patient been admitted in last 30 No days? Prior Living Arrangements House Household Members spouse Type of transporation used prior to Relies on Others admit Independent with ADL's Yes: Needs assist with ADLs and IADLs- Recent surgery Is patient alert and oriented? Yes Needs Assistance With Bathing,Meal Prep,Home Chores / Shopping Caregiver for Another No Comment All DME needed at home Barriers to Discharge No Discharge Plan Home Transportation Arrangement Family Referrals Initiated None needed
--- NOTE | 2025-02-07 13:55 | OT.IP.EVAL ---
Past Medical History Anxiety Benign prostatic hyperplasia with lower urinary tract symptoms Bronchitis CAD (coronary artery disease) Coccyx disorder Diabetes Eczema History of depression History of tobacco use History of urinary tract infection HTN (hypertension) Hyperlipidemia Incomplete emptying of bladder Melanoma Muscle weakness Nocturia Numbness and tingling GEOVANNY on CPAP Panic attacks PONV (postoperative nausea and vomiting) Prostatitis Recurrent urinary tract infection Secondhand smoke exposure Surgical History (Last Reviewed 03/13/24 @ 13:12 by Maurice Khan MD) History of back surgery Hx of heart artery stent (~2003) Hx of laminectomy Hx of tonsillectomy Occupational Therapy Inpatient Evaluation/Re-Eval M1 PT/OT-IP Prior Functional Status Start: 02/07/25 15:01 Freq: NEEDED Status: Active Protocol: Document 02/07/25 15:01 [facility] (Rec: 02/07/25 15:15 [facility] Desktop) Medical Review Prior Functional Status Communication I Mobility and Gait Did not use a device. Activities of Daily Living and IADL's Able to do all ADL and IADL needs and going to cardio rehab . However only going 1/week due to hypotension. Social History Household Members spouse Living Arrangements House Number of Floors (Floors) 3 or More Floors Number of Stairs To Enter/Railing? Pt has an elevator to use in his house. Home Environment Walk in Shower Home Equipment Raised Toilet Seat w/Armrests, Shower Seat with Backrest,Hand Held Shower,Clinical Reimbursement Specialist Additional Social History Comment Pt has an adjustable bed. M2 OT-IP Current Condition Start: 02/07/25 15:01 Freq: Status: Active Protocol: Document 02/07/25 15:01 [facility] (Rec: 02/07/25 15:15 [facility] Desktop) Occupational Therapy Current Condition Current Condition Evaluation Date 02/07/25 Treatment Diagnosis Hypotension, left knee small jt effusion Diagnosis Onset Date 02/06/25 M3 OT- IP Subjective and Pain Start: 02/07/25 15:01 Freq: Status: Active Protocol: Document 02/07/25 15:01 [facility] (Rec: 02/07/25 15:15 [facility] Desktop) OT- Subjective Occupational Therapy Visit Type Type Initial Evaluation Visit Start Time 13:10 Visit Stop Time 13:55 Occupational Therapy Visit Comments Patient Comments Pt agreed to get up. Patient/Caregiver Goals TO go home. OT Pain Assessment Pain When Pain Assessed During Mobility Pain Present Pain Present Pain Reported Location Left Knee Pain Behaviors Facial Grimacing M4 OT- IP ADL's Start: 02/07/25 15:01 Freq: Status: Active Protocol: Document 02/07/25 15:01 [facility] (Rec: 02/07/25 15:15 [facility] Desktop) OT [id number] Comments OT Self-Feeding Comments Not at meal time. OT ADL-Grooming Comments OT Grooming Comments Not performed. OT ADL-Oral Care Comments Oral Care Comments Not performed. OT ADL-Dressing General Eval Lower Body Dressing Ability Moderate Assistance Areas Needing Assistance Socks OT ADL-Toileting Comments OT Toileting Comments Pt states used the toilet prior. OT ADL-Bathing Comments OT Bathing Comments At this time best to have assist and monitor his BP prior to showering . M5 OT- IP IADL's Start: 02/07/25 15:01 Freq: Status: Active Protocol: Document 02/07/25 15:01 [facility] (Rec: 02/07/25 15:15 [facility] Desktop) OT-Instrumental Activities of Daily Living Home Safety Awareness Awareness of Need for Assistance at Home Good Awareness Meal Preparation Meal Preparation Caregiver Provides Assist Loading Dock Hand Loading Dock Hand Caregiver Provides Assist M6 OT- IP Functional Cognition Start: 02/07/25 15:01 Freq: Status: Active Protocol: Document 02/07/25 15:01 [facility] (Rec: 02/07/25 15:15 [facility] Desktop) Cognitive Factors Limiting Selfcare Function Cognitive Ability Level of Alertness Alert Patient Orientation Name,Place,Situation Attention Span Ability Capable of Focused Attention, Capable of Sustained Attention Ability to Follow Commands Able to Follow One Step Commands Cognitive Comments Cognitive Assessment Comments Pt able to follow commands for ADL and mobility needs. OT- Vision and Hearing OT- Hearing Assessment OT- Hearing Assessment WFL OT- Vision Assessment Visual Acuity Glasses All The Time Visual Attentiveness WFL Occular Pursuits WFL M7 OT- IP Mobility and Balance Start: 02/07/25 15:01 Freq: Status: Active Protocol: Document 02/07/25 15:01 [facility] (Rec: 02/07/25 15:15 [facility] Desktop) OT-Transfer Assessment Sit to and From Stand Sit to and from Stand Minimal Assistance Transfers Transfer Ability Moderate Assistance,Maximum Assistance Technique Transfer Destination Bed,Chair Transfer Technique Stand Step Pivot Devices Transfer Assistive Devices Gait Belt,Front Wheeled Walker Comments Mobility Comments BO to stand to the FWW and MODA with FWW and at times buckling and needing MAX A for balance. BP supine 124/69, sitting 116/ 71 and 120/78, standing 93/58 and 95/56, sitting 104/65. Able to encourage pt to work on BLE exercises while seated in the recliner and call for assist. OT- Balance Assessment Sitting Balance and Reactions Static Sitting Balance Ability Good Dynamic Sitting Balance Ability Fair Standing Balance and Reactions Static Standing Balance Ability Fair Dynamic Standing Balance Ability Poor M8 OT- IP Objective Assessments Start: 02/07/25 15:01 Freq: Status: Active Protocol: Document 02/07/25 15:01 [facility] (Rec: 02/07/25 15:15 [facility] Desktop) OT Gross Range of Motion Upper Extremity Range of Motion ROM Impairments grossly WFL OT Strength Comments Strength Comments 4-/5 to 4/5 from proximal to distal M9 OT- IP Assessment and Plan Start: 02/07/25 15:01 Freq: Status: Active Protocol: Document 02/07/25 15:01 [facility] (Rec: 02/07/25 15:15 [facility] Desktop) OT Summary Assessment and Plan Potential Rehabilitation Potential Good Analytic Complexity at Evaluation Moderate Summary OT Impairments Pain,Strength,Balance, Functional Mobility,Grooming, Dressing,Toileting,Bathing, Toilet Transfers,Shower Transfers,Activity Tolerance Progress Towards Goals Slow Progress due to Pain,Slow Progress due to Medical Issues Assessment Summary Pt MOD complexity and main barriers are pain, has orthostatic hypotension and needing more assist for ADL and mobility needs. Pt tends to cross his heels as he walks as he tires and also left knee tends to buckle as well. Pt pending progress may benefit from short skilled rehab prior to going home. Hopeful pt to get better and go home with 24/7 assist and do home health or well enough to return to his cardio rehab. Goals Self-Feeding Goal Independent Grooming Goal Independent Dressing Goal Independent Toileting Goal Independent Bathing Goal Standby Assistance Toilet Transfer Goal Independent Shower Transfer Goal Standby Assistance Days to Meet Goals 10 Frequency of Treatment Other frequency 5x/week Treatment Plan OT Treatment Plan ADL Training,Functional Mobility,Patient/Family Education,Discharge Planning Other Treatment Recommendations and Next Standing at sink with FWW for Treatment Focus ADL needs. Discharge Recommendations OT Discharge Recommendations SNF Rehab,Home vs SNF Other Discharge Recommendations If able to progress well and capable to assist pt - home with 24/ assist and home health or continue cardiac rehab Transportation Needs at Discharge Private Vehicle,Wheelchair/ Cabulance
--- NOTE | 2025-02-07 14:55 | P.PN_ITS ---
Subjective Subjective Interval history: Chief complaint orthostatic hypotension Feeling okay today but still with marked 30 point drop in systolic blood pressure on standing feels woozy. Working with PT left knee will buckle. Med changes are made waiting for them to take effect. Exam Vital Signs (past 8 hours): - 02/07/25 08:00 02/07/25 09:15 02/07/25 12:00 Temperature 97.7 F 97.2 F L Pulse Rate 82 76 Respiratory Rate 16 16 Blood Pressure 148/76 H 137/75 Pulse Oximetry 97 95 Oxygen Delivery Method Room Air Oxygen Flow Rate 0 0 Oxygen Delivery Method Room Air Oxygen Flow Rate 0 Narrative Exam Narrative: Sitting in recliner with left knee under ice pack Const Other: Well-developed well-nourished Chest Other: Well-healing midline chest incision Resp Other: Clear to auscultation bilaterally speaking well on room air Cardio Other: Regular rate and rhythm S1-S2 GI Other: Soft nontender nondistended active bowel sounds Neuro Other: Alert awake fully oriented moving all limbs equally Objective Labs 02/07/25 04:40 02/07/25 04:40 Labs: Laboratory Results - last 24 hr 02/07/25 04:40 WBC 7.5 RBC 3.72 L Hgb 11.4 L Hct 33.3 L MCV 89.5 MCH 30.5 MCHC 34.1 RDW 13.6 Plt Count 184 Neut % (Auto) 64.4 Lymph % (Auto) 20.4 L [place] % (Auto) 12.3 Eos % (Auto) 2.3 Baso % (Auto) 0.6 Neut # (Auto) 4900 Lymph # (Auto) 1500 [place] # (Auto) 900 Eos # (Auto) 200 Baso # (Auto) 0 Sodium 142 Potassium 4.0 Chloride 104 Carbon Dioxide 32 BUN 13 Creatinine 1.00 Estimated GFR > 60 BUN/Creatinine Ratio 13.0 Glucose 90 Calcium 9.2 Total Bilirubin 0.5 AST 30 ALT 22 Alkaline Phosphatase 50 Total Protein 6.4 Albumin 4.0 Globulin 2.4 Albumin/Globulin Ratio 1.7 [facility] Medical History (Updated 02/06/25 @ 19:03 by Sarai Malone MD) Prostatitis Recurrent urinary tract infection Incomplete emptying of bladder Nocturia History of urinary tract infection Secondhand smoke exposure History of tobacco use Benign prostatic hyperplasia with lower urinary tract symptoms History of depression PONV (postoperative nausea and vomiting) Coccyx disorder Panic attacks Anxiety Eczema Melanoma Diabetes CAD (coronary artery disease) HTN (hypertension) Hyperlipidemia Bronchitis GEOVANNY on CPAP Muscle weakness Numbness and tingling Surgical History History of back surgery Hx of laminectomy Hx of tonsillectomy Hx of heart artery stent (~2003) Family History Mother Cancer Father Coronary artery disease Social History marital status: household members: spouse Smoking Status: Former smoker alcohol intake: never caffeine: Yes Type(s) of exercise: none Assessment & Plan Assessment & Plan narrative: #orthostatic hypotension #primary hypertension Improved today but still gets markedly dizzy on standing up. Continue to hold tadalafil and ramipril, metoprolol succinate has been switched to tartrate, and tamsulosin dose is reduced to 0.4. 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 Ambulate with assistance only. # acute left knee pain Suspect he hit it with fall x-ray shows only a mild effusion he is having trouble bearing weight on it with PT they do recommend use of rolling walker which they are obtaining from [facility]. Ice maybe trying ice bandage ambulate with assistance elevate as needed Tylenol #hx of recent CABG groundwater monitoring technician - function seems ok suspect this is a peripheral pressure issue with medication #diabetes on insulin Stable continue 50 units of long-acting insulin nightly with SSI diabetic diet fingersticks he is also on Mounjaro last dose of that was on Monday continue to hold while inpatient #BPH w/obstruction was taking tamsulosin 0.8 with tadalafil intended as a potentiating agent. Stop tadalafil and cut tamsulosin dose to 0.4. Dispo: Orthostatics are improving suspect she will be ready to go tomorrow Code: full Diet: diabetic MDM: Asha [phone] Time-Based Coding :: [TOTAL MINUTES] spent with patient and on the chart (including review of chart, obtaining history, exam, reviewing outside data, placing orders, documenting exam and treatment plan, and counseling patient) on [DATE]. Quality VTE Deep Vein Thrombosis/Pulmonary Embolism Present on Admission: No
[2025-02-07 15:28] LABS: Hemoglobin A1C% w Est Avg Glu 5.6 % (4.0-6.0)
[2025-02-07 16:00] VITALS: BP 134/74; PULSE 82; RESP 16; TEMP 36.2; O2SAT 96
[2025-02-07 20:00] VITALS: BP 145/81; PULSE 86; RESP 19; TEMP 36.3; O2SAT 99
[2025-02-07] MEDS: SODIUM CHLORIDE 0.9% FLUSH 10 ML IV (20:26)
[2025-02-08] VITALS: BP 146/84; PULSE 78; RESP 19; TEMP 37.1; O2SAT 96
[2025-02-08 04:00] VITALS: BP 146/88; PULSE 74; RESP 19; TEMP 37; O2SAT 98
[2025-02-08 05:14] LABS: Add Manual Diff / Slide Review NO; Basophils Absolute Auto 100 /uL (0-100); Basophils Percent Auto 0.7 % (0-2); Eosinophils Absolute Auto 300 /uL (0-450); Eosinophils Percent Auto 4.3 % (2-4); Hematocrit 34.9 % (41-53); Hemoglobin 11.8 g/dL (13.5-17.5); Lymphocytes Absolute Auto 1600 /uL (1100-4500); Lymphocytes Percent Auto 20.4 % (25-40); Mean Corpuscular HGB Conc 33.7 % (30-36); Mean Corpuscular Hemoglobin 30.5 PG (26-34); Mean Corpuscular Volume 90.5 fL (80-100); Monocytes Absolute Auto 900 /uL (0-900); Monocytes Percent Auto 11.9 % (3-14); Neutrophils Absolute Auto 4900 /uL (1500-7000); Neutrophils Percent Auto 62.7 % (50-75); Platelet Count 185 X10^3/uL (150-400); Red Blood Cell Count 3.86 X10^6/uL (4.5-5.9); Red Cell Distribution Width 13.7 % (11.6-14.8); White Blood Cell Count 7.8 X10^3/uL (4.5-11.0)
[2025-02-08 05:26] LABS: Alanine Aminotransferase 21 IU/L (<50); Albumin 4.1 g/dL (3.5-5.0); Albumin Globulin Ratio 1.7 (1.0-2.8); Alkaline Phosphatase 52 U/L (38-126); Aspartate Aminotransferase 29 IU/L (17-59); BUN Creatinine Ratio 12.4 (6-22); Bilirubin Total 0.5 mg/dL (0.2-1.3); Blood Urea Nitrogen 13 mg/dL (9-20); Calcium 9.2 mg/dL (8.4-10.2); Carbon Dioxide 30 mmol/L (22-32); Chloride 103 mmol/L (98-107); Estimated Glomerular Filt Rate > 60 mL/min (>60); Globulin 2.4 g/dL (1.7-4.1); Glucose 126 mg/dL (70-99); HEMOLYSIS < 15 (0-50); Potassium 4.2 mmol/L (3.4-5.1); Sodium 140 mmol/L (137-145); Total Protein 6.5 g/dL (6.3-8.2)
[2025-02-08] MEDS: HYDROCODONE/ACET 5/325 TABLET 1 TAB PO (07:56)
[2025-02-08 08:00] VITALS: BP 138/66; PULSE 76; RESP 16; TEMP 36.2; O2SAT 94
[2025-02-08] MEDS: INSULIN LISPRO 100 UNIT/ML 3ML VIAL SUBCUT ×2 (08:05→12:34)
[2025-02-08] MEDS: ASPIRIN EC 81 MG TABLET PO (08:06)
[2025-02-08] MEDS: METOPROLOL IR 25 MG TABLET PO (08:07)
[2025-02-08] MEDS: SODIUM CHLORIDE 0.9% FLUSH 10 ML IV (08:07)
[2025-02-08 10:00] VITALS: BP 103/67; BP 112/59; BP 145/85; PULSE 80; PULSE 85; PULSE 89
--- NOTE | 2025-02-08 10:31 | P.DS_ITS ---
History of Present Illness History of Present Illness Date Patient Seen: 02/08/25 Time Patient Seen: 10:32 Chief complaint: hypotension s/p CABG 10 wks Narrative: patient with history of CABG 10 weeks ago presents to ED with complaint of extreme syncope examination in the ED revealed major orthostatic hypotension from systolic 173->111 on standing up. reports he has been doing well since the surgery but this orthostatic issue has been more pronounced. discussed case with ED physician who talked with Dr. Duran Cardiology they agree medications are most likely the issue here not a problem from surgery they recommend stopping ramipril and tadalafil reducing tamsulosin to 0.4 mg and switching from metoprolol succinate to tartrate. he reports he mostly feels okay appetite sleep all okay. Does feel a bit dizzy sometimes when he is standing up and moving around. {from Dr. Dyson's H&P 02/06/25} Discharge Providers Provider Date of admission: 02/06/25 16:45 Discharge Date: 02/08/25 Primary care physician: Jean Daniel MD Consults: 02/06/25 16:47 Consult to Occupational Therapy Evaluate & Treat Comment: Physician Instructions: Evaluate and treat Consult to Physical Therapy Evaluate & Treat Comment: Physician Instructions: Evaluate and Treat Discharge provider: Gregory Womack MD Summary Hospital Course Discharge Diagnosis: 1. Orthostatic hypotension 2. Coronary artery disease status post bypass surgery 3. Diabetes type 2 with long-term insulin use 4. Depression 5. Paroxysmal atrial fibrillation post CABG 6. Long-term anticoagulation 7. BPH with lower urinary tract symptoms Hospital Course: Patient was admitted as above. Found to be profoundly orthostatic hypotensive. After consultation with Cardiology (since he had within the last 3 months or so had bypass surgery) his medications were dramatically altered. He was switch from metoprolol succinate to metoprolol tartrate, his JAMES inhibitor was discontinued his tadalafil was discontinued and his tamsulosin was decreased by 50%. He was also given vigorous IV fluid resuscitation with this is numbers seem to improve somewhat. However he remained quite dramatically orthostatically hypotensive Morning of discharge she was numbers were somewhat improved while he still dropped his blood pressure upon rising to a seated position numbers stabilized when he was stood up and patient was asymptomatic. It was felt as though he was probably stable for discharge with extreme caution at home for changes in position. Given the persistence of the measured drop in blood pressure with change in position his metoprolol was further decreased to 12.5 mg b.i.d. of the tartrate version and no other changes were made He will need close follow up as an outpatient by both Cardiology as well as his PCP and given that we have dramatically reduced medications aimed at his lower urinary tract symptoms he will need close follow up with the Urology as well Status at Discharge Cognitive/behavioral status at discharge: at baseline, oriented Functional status at discharge: independent ambulation Overall status at discharge: patient is progressing back to baseline Time Spent with Patient Time spent: Greater than 30 minutes Exam Vital Signs (past 8 hours): - 02/08/25 04:00 02/08/25 08:00 Temperature 98.6 F 97.2 F L Pulse Rate 74 76 Respiratory Rate 19 16 Blood Pressure 146/88 H 138/66 Pulse Oximetry 98 94 Oxygen Flow Rate 0 0 Oxygen Delivery Method Room Air Oxygen Flow Rate 0 Objective Labs 02/08/25 04:28 02/08/25 04:28 Labs: Laboratory Results - last 24 hr 02/07/25 02/08/25 04:40 04:28 WBC 7.8 RBC 3.86 L Hgb 11.8 L Hct 34.9 L MCV 90.5 MCH 30.5 MCHC 33.7 RDW 13.7 Plt Count 185 Neut % (Auto) 62.7 Lymph % (Auto) 20.4 L [place] % (Auto) 11.9 Eos % (Auto) 4.3 H Baso % (Auto) 0.7 Neut # (Auto) 4900 Lymph # (Auto) 1600 [place] # (Auto) 900 Eos # (Auto) 300 Baso # (Auto) 100 Sodium 140 Potassium 4.2 Chloride 103 Carbon Dioxide 30 BUN 13 Creatinine 1.05 Estimated GFR > 60 BUN/Creatinine Ratio 12.4 Glucose 126 H Hemoglobin A1c 5.6 Calcium 9.2 Total Bilirubin 0.5 AST 29 ALT 21 Alkaline Phosphatase 52 Total Protein 6.5 Albumin 4.1 Globulin 2.4 Albumin/Globulin Ratio 1.7 [facility] [place] Medical History Obstructive sleep apnea of adult Mixed hyperlipidemia Essential hypertension Anxiety disorder Long-term insulin use Type 2 diabetes mellitus Depression Prostatitis Recurrent urinary tract infection Incomplete emptying of bladder Nocturia History of urinary tract infection Secondhand smoke exposure History of tobacco use Benign prostatic hyperplasia with lower urinary tract symptoms History of depression PONV (postoperative nausea and vomiting) Coccyx disorder Panic attacks Anxiety Eczema Melanoma Diabetes CAD (coronary artery disease) HTN (hypertension) Hyperlipidemia Bronchitis GEOVANNY on CPAP Muscle weakness Numbness and tingling Surgical History Status post coronary artery bypass graft History of back surgery Hx of laminectomy Hx of tonsillectomy Hx of heart artery stent (~2003) Family History Mother Cancer Father Coronary artery disease Social History marital status: household members: spouse Smoking Status: Former smoker alcohol intake: never caffeine: Yes Type(s) of exercise: none Discharge Assessment & Plan Assessment and Plan Plan of Treatment: Discharge home on reduced medications as listed in the summary below Close follow up with PCP to monitor blood pressure numbers Close follow up with the Urology and Cardiology will be necessary as well. Discharge Plan Discharge Plan Patient Disposition: Home Provider Discharge Comment: Caution when changing position Discharge orders & Medications Prescriptions: New Eliquis 5 mg tablet 5 mg PO BID Qty: 60 0RF tamsulosin 0.4 mg capsule 0.4 mg PO DAILY Qty: 30 0RF escitalopram oxalate 10 mg tablet 10 mg PO DAILY Qty: 30 0RF aspirin 81 mg Tablet,Delayed Release (Dr/Ec) 81 mg PO DAILY Qty: 365 0RF metoprolol tartrate 25 mg tablet 12.5 mg PO BID Qty: 45 0RF Continued escitalopram oxalate [Lexapro] 10 MG tablet 10 mg PO QAM Qty: 0 insulin glargine [Lantus Solostar U-100 Insulin] 100 UNIT/1 ML insulin pen 100 units subcut BEDTIME Qty: 0 multivitamin [Multiple Vitamins] 1 EACH tablet 1 tab PO DAILY Qty: 0 coenzyme Q10 [Co Q-10] 100 MG capsule 1 tab PO DAILY Qty: 0 metformin [Fortamet] 1,000 MG tablet extended release 24hr 1,000 mg PO BID Qty: 0 Mounjaro 10 mg/0.5 mL pen injector 10 mg SUBCUT WEEKLY rosuvastatin 40 mg tablet 40 mg PO DAILY Discontinued metoprolol succinate [Toprol XL] 50 MG tablet extended release 24 hr 25 mg PO QAM Qty: 0 tamsulosin 0.4 mg capsule 0.8 mg PO DAILY Qty: 180 3RF tadalafil 2.5 mg tablet 2.5 mg PO DAILY Qty: 90 3RF clopidogrel 75 mg tablet 75 mg PO DAILY ramipril 2.5 mg capsule 2.5 mg PO DAILY aspirin 325 mg tablet 325 mg PO DAILY Follow up/Referrals: Jean Daniel MD [Primary Care Provider] - 1 Week Discharge Health Status Multidrug resistant organism: No MDRO Diet/Activity/Treatments Diet: Diet as Tolerated Visit Report/Discharge Packet Stand Alone Forms: Patient Portal/API Discharge Data Primary Care Provider: Jean Daniel Attending Provider: Charles Dyson Admit Date/Time: 02/06/25 16:45 Quality VTE Deep Vein Thrombosis/Pulmonary Embolism Present on Admission: No IH PROFEE Charge Codes Discharge inpatient/observation: [id number]
--- NOTE | 2025-02-08 10:35 | PT.IPTN ---
Physical Therapy Treatment Note M2 PT-IP Current Condition Start: 02/07/25 16:51 Freq: NEEDED Status: Active Protocol: Document 02/07/25 13:10 AB (Rec: 02/07/25 17:07 AB [id number]) Physical Therapy Current Condition Current Condition Evaluation Date 02/07/25 Treatment Diagnosis s/p fall; orthostatic hypotension; difficulty in walking Onset Date 02/06/25 M3 PT-IP Subjective Start: 02/07/25 16:51 Freq: NEEDED Status: Active Protocol: Document 02/08/25 10:35 AB (Rec: 02/08/25 11:46 AB Desktop) Subjective Physical Therapy Visit Type Type Treatment Note Visit Start Time 10:35 Visit Stop Time 11:05 Number of [employer] Visits 0 Physical Therapy Visit Comments Patient Comments feeling better today Therapy Pain Assessment Location Left Knee Scale Used slight pain per pt M4 PT-IP Mobility and Gait Start: 02/07/25 16:51 Freq: NEEDED Status: Active Protocol: Document 02/08/25 10:35 AB (Rec: 02/08/25 11:46 AB Desktop) PT-Transfer Assessment Sit to and From Stand Sit to and from Stand Standby Assistance,1 Person Assistance,Use of Upper Extremities Equipment Transfer Assistive Device Gait Belt,Front Wheeled Walker Orthotic/Prosthetic Devices or Brace: No Comments Mobility Comments pt reclined on the chair and spouse in room. pt agreed to do PT. BP monitored. BP reclined with LE elevated: 132/70. BP sitting with legs down: 114/70. Rechecked after 2 mins: 119/76. sit to stand SBA and BP in standin/58. no c/o dizziness. BP after 1-2 mins of standin/70. pt ambulated in room using FWW CGA ~ 25 ft. no c/o dizziness . presents with unsteady gait and UE use on FWW for support but no knee buckling. BP in standing after ambulation: 91/ 58. pt sat on the chair and rested. informed pt to continue using FWW at this time when he goes home. pt agreed. caregiver training conducted. educated spouse on how to use safety belt and how to assist pt. spouse was able to put safety belt on pt. BP sitting : 128/80. sit to stand from chair SBA and spouse ambulated with pt using FWW CGA ~ 25 ft . pt sat back on chair. BP: 109/72. positioned pt on the chair. call light and table placed within reach. pt and spouse without further concerns. Gait Assessment Gait Gait Assistance Required: Contact Guard Assist,1 Person Assist Distance (Feet) 25 Able to Maintain Weight Bearing Status Yes During Gait Assistive Devices Assistive Device Gait Belt,Front Wheeled Walker Orthotic/Prosthetic Devices or Brace: No Gait Deviations General Gait Pattern Decreased Stride Length, Decreased Feet Clearance Factors Limiting Gait Function Factors Limiting Gait Function Decreased Activity Tolerance, Decreased Strength,Limited Range of Motion,Pain,Poor Balance,Poor Safety Awareness M5 PT-IP Objective Assessments Start: 02/07/25 16:51 Freq: NEEDED Status: Active Protocol: Document 02/07/25 13:10 AB (Rec: 02/07/25 17:07 AB [id number]) Orientation Orientation/Cognition Level of Alertness Alert Orientation Name,Place,Situation Language Function Ability No Deficits Noted Safety Awareness Decreased Safety Awareness Memory Description No Deficits Noted Gross Range of Motion Lower Extremity ROM Assessment Within Functional Limits Strength Lower Extremity Strength Assessment Left Impaired Hip 4-/5 Knee 3+/5 Comments Strength Comments LLE: pain limiting MMT Muscle Tone Muscle Tone WNL Yes M6 PT-IP Treatment Start: 02/07/25 16:51 Freq: NEEDED Status: Active Protocol: Document 02/08/25 10:35 AB (Rec: 02/08/25 11:46 AB Desktop) Physical Therapy Treatment Education Education Provided Safety M7 PT-IP Assessment and Plan Start: 02/07/25 16:51 Freq: NEEDED Status: Active Protocol: Document 02/08/25 10:35 AB (Rec: 02/08/25 11:46 AB Desktop) PT Summary Assessment and Plan Potential Rehabilitation Potential Fair Summary Impairments Pain,ROM,Strength,Balance, Coordination,Bed Mobility, Transfers,Gait,Activity Tolerance Progress Towards Goals Slow Progress due to Medical Issues Assessment Summary pt improving slowly with mobility and able to tolerate ambulation up to 25 ft using FWW. recommending continued use of FWW at this time. caregiver training conducted and spouse able to assist pt safely. pt plans to go home and spouse to assist him. Goals Bed Mobility Goal Independent Transfer Goal Standby Assistance,Front Wheeled Walker Gait Goal Standby Assistance,Front Wheel Walker Gait Distance 100 Other Goals improve transfers, ambulation using LRAD/without AD ~ 200 ft mod I Days to Meet Goals 10 Frequency of Treatment Frequency Of Treatment Once a Day Treatment Plan Physical Therapy Treatment Plan Bed Mobility Training,Transfer Training,Gait Training, Therapeutic Exercise,Balance Retraining,Discharge Planning, Hot or Cold Pack,Neuromuscular Re-ed,Coordination Retraining ,Manual Therapy Precautions Other Precautions falls; BP Recommendations To Nursing Amount of Assist Needed 1 Person Assist Discharge Recommendations PT Discharge Recommendations Home with Assistance, Outpatient PT Transportation Needs at Discharge Private Vehicle,Wheelchair/ Cabulance - PT assist 1
--- NOTE | 2025-02-08 12:36 | CM.DPC ---
DCP Discharge Home Per MD, pt improving and anticipate if pt's bp stable this afternoon then can likely d/c home this evening with outpt f/u with Cardiology and Urology. Per PT, completed CG training with pt and spouse bedside and orthostatics stable and spouse able to assist with FWW and 25 ft ambulation and recommending home with assist and outpt PT. Pt already established with Cardio Rehab at baseline as well. Per RN, will check pt's bp around 1400 today and then anticipate discharge home and no concerns noted. Plan: SW to follow for likely pt d/c home via spouse POV later today if bp/vitals stable with outpt f/u and any further identified discharge planning needs. Pt hopeful to d/c home and he denies any further discharge needs. LARA Mishra
[2025-02-08 13:10] VITALS: BP 127/69; PULSE 72; RESP 15; TEMP 36; O2SAT 96
[2025-02-08 14:20] VITALS: BP 104/70; BP 113/60; BP 134/75; PULSE 74; PULSE 80; PULSE 82
--- NOTE | 2025-02-08 16:28 | PC.NURSE ---
Pt discharged home at 1620, escorted off floor in wheelchair accompanied by spouse and hospital staff. IV removed, tele d/c'd, discharge teaching completed including medication changes, worsening symptoms and follow up appointment. Pt's home medications retrieved from pharmacy and returned. Pt left the floor with all belongings.
== END 2025-02-08 16:20 | disposition home or self-care (01) ==
LOC: ED 15:59 → AC 16:47
PROVIDERS: Admitting Provider Family Medicine; Emergency Provider Emergency Medicine; Family Provider Family Medicine; PCP Family Medicine; Referring Provider Emergency Medicine; Visit Provider Family Medicine
DX: I95.1 Orthostatic hypotension (principal); I10 Essential (primary) hypertension; E11.9 Type 2 diabetes mellitus without complications; Z79.4 Long term (current) use of insulin; N40.1 Benign prostatic hyperplasia with lower urinary tract symptoms; N13.8 Other obstructive and reflux uropathy; Z79.01 Long term (current) use of anticoagulants; F32.A Depression, unspecified; I48.0 Paroxysmal atrial fibrillation; I25.10 Atherosclerotic heart disease of native coronary artery without angina pectoris; Z95.1 Presence of aortocoronary bypass graft
CPT/HCPCS: 36415; 70450; 71045; 72125; 73560; 80053; 82550; 82962; 83036; 83690; 83735; 83880; 84484; 85025; 85610; 85730; 93005; 96372; 97163; 97166; 97530; 99239; 99284; G0378; J1815

== ENCOUNTER 2025-03-13 12:30 | Outpatient (RCR) | payer MEDICARE, SELFPAY ==
[2018-09-27 14:18] VITALS: BMI 36.9
== END 2025-03-13 14:30 ==
LOC: CAR 12:30
PROVIDERS: Family Provider Family Medicine; PCP Family Medicine; Referring Provider Internal Medicine Cardiovascular Disease; Visit Provider Internal Medicine Cardiovascular Disease
DX: Z98.890 Other specified postprocedural states (principal)
CPT/HCPCS: 93798